=== PATIENT | male | born 1975 | race Caucasian/White ===

== ENCOUNTER 2018-10-10 09:16 | Emergency (ER) | payer BC ==
[2018-10-10 09:23] VITALS: RESP 20
[2018-10-10] MEDS ORDERED: PROPARACAINE 0.5% OPHTH DROPS 15 ML BTL BOTH EYES STA (09:52)
[2018-10-10] MEDS ORDERED: ERYTHROMYCIN 5 MG/GM OPHTH OINT 3.5 GM TUBE LEFT EYE STA (10:50)
[2018-10-10] MEDS ORDERED: CYCLOPENTOLATE 1% OPHTH SOLN 2 ML BTL LEFT EYE STA (12:09)
--- NOTE | 2018-10-10 12:37 | ED ---
General Adult HPI - General Chief complaint: Eye Problems Stated complaint: something in eye Time Seen by Provider: 10/10/18 09:40 Source: patient, RN notes reviewed Mode of arrival: ambulatory Limitations: no limitations - History of Present Illness Initial comments: 42-year-old male presents to the emergency department for a chief complaint of left eye irritation 2 days. Patient states he woke up with this irritation yesterday morning. He states his eye has been tearing since that time. He also admits to increased light sensitivity. Patient does not recall an episode in which she might have scratched his eye and thus he was sleeping. He denies a history of sleeping with his eyes open. Patient denies wearing contacts but does wear glasses. Patient was recently working on a car but denies any foreign objects hitting him in the eye during this. Patient has no other complaints at this time including shortness of breath, chest pain, abdominal pain, nausea or vomiting, headache, or visual changes. - Related Data Home Medications Medication Instructions Recorded Confirmed Propranolol [Inderal] 10 mg PO DAILY 10/10/18 10/10/18 Allergies Allergy/AdvReac Type Severity Reaction Status Date / Time No Known Allergies Allergy Verified 10/10/18 09:22 Review of Systems ROS Statement: Those systems with pertinent positive or pertinent negative responses have been documented in the HPI. ROS Other: All systems not noted in ROS Statement are negative. Past Medical History Past Medical History: Hypertension Additional Past Medical History / Comment(s): scioliosis History of Any Multi-Drug Resistant Organisms: None Reported Additional Past Surgical History / Comment(s): vasectomy Past Psychological History: No Psychological Hx Reported Smoking Status: Current every day smoker Past Alcohol Use History: Daily Past Drug Use History: Marijuana General Exam Limitations: no limitations General appearance: alert, in no apparent distress Head exam: Present: atraumatic, normocephalic, normal inspection Eye exam: Present: normal appearance, PERRL, EOMI, conjunctival injection ( Erythema noted of left conjunctiva). Absent: scleral icterus, periorbital swelling, periorbital tenderness Expanded Eyelids: Normal Inspection: Bilateral, Erythema: Left Pupils: Regular, Round: Bilateral, Miosissis: Left Sclera/Conjunctival: Normal Inspection: Right, Injection: Left (injection, no foreign body noted) Anterior chamber: Cell/Flare: Left (per Dr Simpson) Visual acuity (R) = 20/: 70 (uncorrected, glasses unavailable) Visual acuity (L) = 20/: 100 (uncorrected, glasses unavailable) With correction: No ENT exam: Present: normal exam, mucous membranes moist Neck exam: Present: normal inspection, full ROM. Absent: tenderness, meningismus, lymphadenopathy Respiratory exam: Present: normal lung sounds bilaterally. Absent: respiratory distress, wheezes, rales, rhonchi, stridor Cardiovascular Exam: Present: regular rate, normal rhythm, normal heart sounds. Absent: systolic murmur, diastolic murmur, rubs, gallop, clicks Neurological exam: Present: alert, oriented X3, CN II-XII intact Psychiatric exam: Present: normal affect, normal mood Course Vital Signs 10/10/18 10/10/18 09:19 13:12 Temperature 98 F 99.1 F Pulse Rate 88 89 Respiratory 20 20 Rate Blood Pressure 119/80 145/96 O2 Sat by Pulse 96 95 Oximetry Medical Decision Making - Medical Decision Making 42-year-old male presents to the emergency department for a chief complete of left eye irritation 2 days. Patient states he woke up with irritation, light sensitivity, and tearing since yesterday morning. He states his sensation has gotten worse. Patient states his vision is somewhat blurry but denies any other visual changes. Tetanus is up-to-date. On exam patient has minimal miosis noted of left pupil when compared to right pupil. Eye was stained with fluorescein and small 2.5 mm corneal abrasion noted at about 10 o'clock when visualized with the Wood's lamp. negative Wilfrido sign. Visual acuity uncorrected: OS 20/100, OD 20/70, bilat 20/40. Patient does wear glasses at home. Patient did not have a history of incident causing scratch to the eye doctor Tatiana was consulted. Dr. Simpson used slit lamp to visualize the eye and noted corneal abrasion. At this time Dr. Simpson recommends erythromycin 4 times a day and cyclopentolate TID x one day. Recommends follow-up tomorrow at his office at 10 AM. Patient agrees. Patient was given both of these medications here in the emergency department. He will return if he has any worsening symptoms. Disposition Clinical Impression: Corneal abrasion, left Disposition: HOME SELF-CARE Condition: Good Additional Instructions: Please apply erythromycin ointment 4 times per day for the next 7 days. Please apply cyclopentolate to the left eye 2 more times today and then stop usage. Please meet Dr. Simpson tomorrow at his office as discussed with him. Please return to the emergency department if you have any worsening symptoms. Is patient prescribed a controlled substance at d/c from ED?: No Referrals: Lela Robles MD [Primary Care Provider] - 1-2 days Lazarus Simpson MD [STAFF PHYSICIAN] - 1-2 days Time of Disposition: 13:13
--- NOTE | 2018-10-10 12:56 | P.CON ---
Consult Note - . Consult date: 10/10/18 Assessment/Plan:: 42 y/o male with 1 days history of discomfort and increasing sensitivity to light and tearing on awakening. This patient does not wear contacts but glasses , and has been working on a car recently, but denies any foreign debris in eye. Today the eye has become more uncomfortable and vision is poorer. There is no previous history of sleeping with eyes open. His last eye exam was several years ago. Va w/o correction: 20/40 OU, 20/70 OD & 20/100 OS Adnexa: unremarkable conjunctiva: OS with mild ciliary flush Cornea: OD unremarkable OS with mid peripheral abrasion in early healing stage ~ 2.5 mm andrew. nasal side AC: OD unremarkable, OS with 2+flare & trace cell Iris: unremarkable OD, mild miosis noted OS A: corneal abrasion with iritis OS, unknown etiology. P: start on antibiotic erythromycin 4 times daily; use " to 3/8" on finger to apply inside eyelid add cyclopentolate 1% 3 times daily use artificial tears to offset sensation, frequently Follow up at [facility] office in @ 10AM.
[2018-10-10 13:15] VITALS: BP 145/96; PULSE 89; TEMP 99.1
== END 2018-10-10 13:40 | disposition home or self-care (01) ==
LOC: EC 09:16
DX: S05.02XA Injury of conjunctiva and corneal abrasion without foreign body, left eye, initial encounter (principal); I10 Essential (primary) hypertension; F17.200 Nicotine dependence, unspecified, uncomplicated; Z79.899 Other long term (current) drug therapy; X58.XXXA Exposure to other specified factors, initial encounter
CPT/HCPCS: 99283

== ENCOUNTER → 2018-12-05 | Day surgery (SDC) | payer BC ==
[~2018-12-05] MED LIST: LACTATED RINGERS 1,000 ML IV ONE; LIDOCAINE 1% 20 ML VIAL (10MG/ML) FOR IV START INTRADERMA ONE; PROPOFOL 10 MG/ML 20 ML VIAL IV ONE
[2018-12-05 10:01] VITALS: TEMP 98.1
--- NOTE | 2018-12-05 11:20 | P.PCN ---
Date of Procedure: 12/05/18 Description of Procedure: BRIEF HISTORY: Patient is a 43-year-old pleasant male scheduled for an elective colonoscopy as a part of hematochezia. Per the patient has had intermittent episodes of bright red blood per rectum and was seen in the clinic for evaluation. He reports with wiping and stool. He denies any pain with hematochezia. He has no prior colonoscopy reported. PROCEDURE PERFORMED: Colonoscopy with polypectomy. PREOPERATIVE DIAGNOSIS: Hematochezia. ESTIMATED BLOOD LOSS: Minimal. IV sedation per Anesthesia. PROCEDURE: After informed consent was obtained, the patient, was brought into the endoscopy unit. IV sedation was administered by Anesthesia under continuous monitoring. Digital rectal examination was normal. Initially the Olympus CF- 190 flexible video colonoscope was then inserted in the rectum, gradually advanced into the cecum without any difficulty. Careful examination was performed as the scope was gradually being withdrawn. Ileocecal valve and the appendiceal orifice were visualized and appeared normal. Prep was excellent. Mucosa of the cecum, ascending colon, transverse colon, descending colon, sigmoid colon, and rectum appeared normal. A 6 mm sessile polyp in the transverse colon was noted and removed completely with cold snare polypectomy. A 3 mm sigmoid sessile polyp was noted and removed with cold snare polypectomy. Retroflexion was performed in the rectum and no lesions were seen, mild internal hemorrhoids were noted. The patient tolerated the procedure well. IMPRESSION: Normal-appearing colon from rectum to cecum. Cold snare polypectomy in the transverse colon. Cold forcep polypectomy in the sigmoid colon. Mild internal hemorrhoids. RECOMMENDATIONS: Findings of this examination were discussed with the patient. Okay for diet. Repeat colonoscopy in 5 years. We pathology from biopsies. Continue local hemorrhoidal care.
[2018-12-05 11:25] VITALS: RESP 16
[2018-12-05 11:35] VITALS: BP 116/85; PULSE 73
--- NOTE | 2018-12-09 10:57 | CDI ---
Outpatient Documentation Clarification Form Date: 12/09/18 CDS/Director Of Learning Name: Lashay Mcconnell Phone: If any questions, call Libra Echavarria Professor Of Floriculture at [phone] Patient Name: Eligio Brenner Admit Date: 12/05/18 Discharge Date: 12/05/18 ATTENTION: The [facility] Coding Staff appreciate your assistance in clarifying documentation. Please respond to the clarification below the line at the bottom and electronically sign. The [facility] Coding staff will review the response and follow-up if needed. Please note: Queries are made part of the Legal Health Record. If you have any questions, please contact the Professor Of Floriculture. Dear Dr. Young, What is the cause of the hematochezia? Our coding resources state that when hematochezia is documented along with internal and/or external hemorrhoids, the physician must be queried to determine whether the hematochezia is secondary to the hemorrhoids, or incidental. Another possible cause could potentially be the transverse colon tubular adenoma or the sigmoid polyp. Thank you for your kind consideration. Hematochezia secondary to hemorrhoids MTDD
== END ==
LOC: ORWHC2ENDO 09:45
PROVIDERS: ATTEND Internal Medicine
DX: K92.1 Melena (principal); D12.3 Benign neoplasm of transverse colon; K63.5 Polyp of colon; K64.8 Other hemorrhoids; I10 Essential (primary) hypertension; Z79.899 Other long term (current) drug therapy; F17.210 Nicotine dependence, cigarettes, uncomplicated; K64.4 Residual hemorrhoidal skin tags
CPT/HCPCS: 88305; 45380; 45385; J2704

== ENCOUNTER 2019-10-04 04:18 | Emergency (ER) | payer BC, OTHER ==
[2019-10-04 04:56] VITALS: RESP 18
[2019-10-04 05:04] LABS: Amphetamine Screen,Urine Not Detected (NotDetected); Barbiturate Screen,Urine Not Detected (NotDetected); Benzodiazepines Screen,Urine Not Detected (NotDetected); Cocaine Screen,Urine Not Detected (NotDetected); Methadone Screen, Urine Not Detected (NotDetected); Opiate Screen,Urine Not Detected (NotDetected); Oxycodone Screen, Urine Not Detected (NotDetected); Phencyclidine Screen,Urine Not Detected (NotDetected); Tricyclic Antidepressant,Urine Not Detected (NotDetected); Urn Cannabinoid Scrn Not Detected (NotDetected)
--- NOTE | 2019-10-04 05:06 | ED ---
General Adult HPI - General Source: patient, EMS, RN notes reviewed Mode of arrival: EMS Limitations: no limitations <Flex Walker - Last Filed: 10/04/19 05:03> <Flex Browne - Last Filed: 10/04/19 13:56> - General Stated complaint: Mental Health Time Seen by Provider: 10/04/19 04:19 - History of Present Illness Initial comments: 43-year-old male presents for evaluation of alcohol intoxication and suicidal ideation. Patient is being petitioned by his daughter. There is concern about suicidal intentions. Patient does admit to alcohol consumption today. He states he wants to be left alone, he had recent close friend who was killed in a motor vehicle accident. He denies suicidal attempt. Denies physical complaints. Patient brought in by EMS and local police. (Flex Walker) - Related Data Home Medications Medication Instructions Recorded Confirmed Propranolol [Inderal] 10 mg PO DAILY 10/10/18 12/05/18 traZODone HCL [Desyrel] 100 mg PO HS 12/05/18 12/05/18 Allergies Allergy/AdvReac Type Severity Reaction Status Date / Time No Known Allergies Allergy Verified 12/05/18 09:53 Review of Systems ROS Other: All systems not noted in ROS Statement are negative. <Flex Walker - Last Filed: 10/04/19 05:03> ROS Other: All systems not noted in ROS Statement are negative. <Flex Browne - Last Filed: 10/04/19 13:56> ROS Statement: Those systems with pertinent positive or pertinent negative responses have been documented in the HPI. Past Medical History Past Medical History: Hypertension Additional Past Medical History / Comment(s): scioliosis History of Any Multi-Drug Resistant Organisms: None Reported Additional Past Surgical History / Comment(s): vasectomy Past Psychological History: No Psychological Hx Reported Smoking Status: Current every day smoker Past Alcohol Use History: Daily Past Drug Use History: Marijuana <Flex Walker - Last Filed: 10/04/19 05:03> General Exam Limitations: no limitations General appearance: alert, appears intoxicated Head exam: Present: atraumatic, normocephalic Eye exam: Present: normal appearance, PERRL ENT exam: Present: normal exam Neck exam: Present: normal inspection. Absent: tenderness, meningismus Respiratory exam: Present: normal lung sounds bilaterally. Absent: respiratory distress, wheezes Cardiovascular Exam: Present: regular rate, normal rhythm GI/Abdominal exam: Present: soft. Absent: distended, tenderness, guarding Extremities exam: Present: normal inspection, normal capillary refill Neurological exam: Present: alert, oriented X3. Absent: motor sensory deficit Psychiatric exam: Present: depressed, agitated. Absent: suicidal ideation (Patient denies suicidal ideation at the time my evaluation) <Flex Walker - Last Filed: 10/04/19 05:03> Course <Flex Walker - Last Filed: 10/04/19 05:03> Vital Signs 10/04/19 04:41 Pulse Rate 104 H Respiratory 18 Rate Blood Pressure 137/109 O2 Sat by Pulse 97 Oximetry - Reevaluation(s) Reevaluation #1: 10/04/19 0700 Patient signed out at shift change to Dr. Browne awaiting sobriety and EPS evaluation. (Flex Walker) Medical Decision Making <Flex Browne - Last Filed: 10/04/19 13:56> - Medical Decision Making The patient rested comfortably throughout the morning and early afternoon months he was determined to be sober he was evaluated by psychiatric service he currently is not a risk to himself or anyone else he will be discharged with outpatient referrals. (Flex Browne) - Lab Data Lab Results 10/04/19 Range/Units 04:41 Urine Opiates Screen Not Detected (NotDetected) Ur Oxycodone Screen Not Detected (NotDetected) Urine Methadone Screen Not Detected (NotDetected) Ur Propoxyphene Screen Not Detected (NotDetected) Ur Barbiturates Screen Not Detected (NotDetected) U Tricyclic Antidepress Not Detected (NotDetected) Ur Phencyclidine Scrn Not Detected (NotDetected) Ur Amphetamines Screen Not Detected (NotDetected) U Methamphetamines Scrn Not Detected (NotDetected) U Benzodiazepines Scrn Not Detected (NotDetected) Urine Cocaine Screen Not Detected (NotDetected) U Marijuana (THC) Screen Not Detected (NotDetected) Disposition <Flex Walker - Last Filed: 10/04/19 05:03> Is patient prescribed a controlled substance at d/c from ED?: No <Flex Browne - Last Filed: 10/04/19 13:56> Clinical Impression: Adjustment reaction of adult life, Alcohol intoxication Disposition: HOME SELF-CARE Condition: Good Instructions (If sedation given, give patient instructions): Alcohol Use Disorder (ED), Alcohol Intoxication (ED), Mood Disorders (ED) Referrals: Tam Pretty MD [Primary Care Provider] - 1-2 days
[2019-10-04] MEDS ORDERED: LORazepam 2 MG/ML INJ IV STA (05:35)
[2019-10-04] MEDS ORDERED: NICOTINE 21MG/24HR PATCH TRANSDERM STA (06:32)
[2019-10-04 14:23] VITALS: BP 112/74; PULSE 78
== END 2019-10-04 15:21 | disposition home or self-care (01) ==
LOC: EC 04:18
DX: F10.129 Alcohol abuse with intoxication, unspecified (principal); F43.21 Adjustment disorder with depressed mood; R45.1 Restlessness and agitation; I10 Essential (primary) hypertension; F17.200 Nicotine dependence, unspecified, uncomplicated; Z79.899 Other long term (current) drug therapy
CPT/HCPCS: 82075; 80306; 99285; 96374; S4990; J2060

== ENCOUNTER → 2021-04-07 | Outpatient (CLI) | payer OTHER ==
[2021-04-07 19:06] LABS: Albumin 4.3 g/dL (3.80-4.90); Albumin/Globulin Ratio 1.65 (1.60-3.17); Anion Gap 10.4 mmol/L (4.00-12.00); Calcium 9.3 mg/dL (8.7-10.3); Carbon Dioxide 23.6 mmol/L (21.6-31.8); Globulin 2.6 g/dL (1.6-3.3); Non-African American GFR(CKD) 114.8 (60.0-200.0); Potassium 3.8 mmol/L (3.5-5.5); Total Bilirubin 0.5 mg/dL (0.2-1.2); Total Protein 6.9 g/dL (6.2-8.2)
[2021-04-07 19:14] LABS: T4, Free (Free Thyroxine) 1.2 ng/dL (0.80-1.80)
[2021-04-07 22:43] LABS: HCT 54.6 % (39.6-50.0); HGB 18.7 g/dL (13.0-17.0); MCH 36.3 pg (27.0-32.0); MCHC 34.2 g/dL (32.0-37.0); Mean Platelet Volume 12.1 fL (9.5-12.2); Platelet Count 182 X 10*3/uL (140-440); RBC 5.15 X 10*6/uL (4.40-5.60); RDW 13.2 % (11.5-14.5); WBC 5.03 X 10*3/uL (4.50-10.00)
[2021-04-07 23:24] LABS: Basophils # (A) 0.05 X 10*3/uL (0.00-0.10); Eosinophils # (A) 0.12 X 10*3/uL (0.04-0.35); Eosinophils % (A) 2.4 %; Lymphocytes % (A) 39.8 %; Macrocytosis (M) 2+; Monocytes # (A) 0.72 X 10*3/uL (0.20-1.00); Monocytes % (A) 14.3 %; Neutrophils # (A) 2.13 X 10*3/uL (1.80-7.70); Neutrophils % (A) 42.3 %
[2021-04-08 00:43] LABS: Erythrocyte Sedimentation Rate 2 mm/Hr (0-15)
== END | disposition home or self-care (01) ==
LOC: LABWHC1 10:52
PROVIDERS: ATTEND Family Medicine
DX: G25.0 Essential tremor (principal); R10.9 Unspecified abdominal pain
CPT/HCPCS: 36415; 80053; 82150; 83690; 84439; 84443; 85025; 85652

== ENCOUNTER → 2021-04-15 | Outpatient (CLI) | payer OTHER ==
--- NOTE | 2021-04-15 16:00 | CT ---
EXAMINATION TYPE: CT abdomen pelvis wo con DATE OF EXAM: 04/15/2021 COMPARISON: None HISTORY: Abdominal pain and nausea x3 months. CT DLP: 434.6 mGycm Examination of the solid and hollow viscera is limited given the lack of contrast. FINDINGS: LUNG BASES: No evidence for nodule. No evidence for infiltrate. LIVER/GB: The gallbladder is unremarkable. No space-occupying hepatic lesion. PANCREAS: No pancreatic mass identified. No inflammatory process seen. SPLEEN: No evidence for splenomegaly. No intrasplenic lesions seen. ADRENALS: No adrenal nodules identified. No evidence for thickening. KIDNEYS: No evidence for renal mass. No nephrolithiasis. No hydronephrosis. BOWEL: Appendix has a normal appearance. No evidence of bowel obstruction. No inflammatory process. Lymph nodes: No evidence for adenopathy greater than 1 cm. Abdominal aorta: Atheromatous changes seen. No evidence for aneurysm. Genital organs: No significant abnormality. Other: Fat-containing left inguinal hernia. IMPRESSION: NO SIGNIFICANT ABNORMALITY APPRECIATED.
== END | disposition home or self-care (01) ==
LOC: RADCTMAIN 15:37
PROVIDERS: ATTEND Family Medicine
DX: R10.9 Unspecified abdominal pain (principal)
CPT/HCPCS: 74176

== ENCOUNTER 2021-06-14 20:13 | Emergency (ER) | payer OTHER ==
[2021-06-14 20:19] VITALS: BP 128/96; PULSE 104; RESP 20; TEMP 98.2
--- NOTE | 2021-06-14 20:41 | ED ---
General Adult HPI - General Chief complaint: Psychiatric Symptoms Stated complaint: Petition Source: patient, RN notes reviewed, old records reviewed Mode of arrival: ambulatory Limitations: no limitations - History of Present Illness Initial comments: 45-year-old white male patient presents to the emergency room by [facility] ambulatory with steady gait for psychiatric evaluation. Patient states that he said the "wrong thing to the wrong person" he states that he told his friend that he wanted "to go to the [place]". 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 He is denying suicidal or homicial ideations, denying any depression. Patient is alert and oriented 4 he has a steady gait he does not appear to be intoxicated. He does not want to be the emergency room. He is not petitioned. There is no family member here to petition the patient, the [facility] didn't provide a signed petition. -: hour(s) (2) Treatments Prior to Arrival: none - Related Data Home Medications Medication Instructions Recorded Confirmed Propranolol [Inderal] 10 mg PO DAILY 10/10/18 12/05/18 traZODone HCL [Desyrel] 100 mg PO HS 12/05/18 12/05/18 Allergies Allergy/AdvReac Type Severity Reaction Status Date / Time No Known Allergies Allergy Verified 06/14/21 20:15 Review of Systems ROS Statement: Those systems with pertinent positive or pertinent negative responses have been documented in the HPI. ROS Other: All systems not noted in ROS Statement are negative. Past Medical History Past Medical History: Hypertension Additional Past Medical History / Comment(s): scioliosis History of Any Multi-Drug Resistant Organisms: None Reported Past Surgical History: No Surgical Hx Reported Additional Past Surgical History / Comment(s): vasectomy Past Psychological History: Depression Smoking Status: Current every day smoker Past Alcohol Use History: Daily Past Drug Use History: Marijuana General Exam Limitations: no limitations General appearance: alert, in no apparent distress Head exam: Present: atraumatic, normocephalic, normal inspection Eye exam: Present: normal appearance, PERRL, EOMI. Absent: scleral icterus, conjunctival injection, periorbital swelling Pupils: Present: normal accommodation ENT exam: Present: normal exam, normal oropharynx, mucous membranes moist Neck exam: Present: normal inspection, full ROM. Absent: tenderness, meningismus, lymphadenopathy, thyromegaly Respiratory exam: Present: normal lung sounds bilaterally. Absent: respiratory distress, wheezes, rales, rhonchi, stridor, chest wall tenderness, accessory muscle use, decreased breath sounds, prolonged expiratory Cardiovascular Exam: Present: regular rate, normal rhythm, normal heart sounds. Absent: systolic murmur, diastolic murmur, rubs, gallop, clicks GI/Abdominal exam: Present: soft, normal bowel sounds. Absent: distended, tenderness, guarding, rebound, rigid Extremities exam: Present: normal inspection, full ROM, normal capillary refill, other (Second third digits right hand stained with nicotine). Absent: tender ness, pedal edema, joint swelling, calf tenderness Back exam: Present: full ROM, other (Scoliosis mild). Absent: tenderness, CVA tenderness (R), CVA tenderness (L), muscle spasm, paraspinal tenderness Neurological exam: Present: alert, oriented X3, CN II-XII intact Psychiatric exam: Present: normal affect, normal mood. Absent: agitated, anxious, flat affect, manic, homicidal ideation, suicidal ideation Skin exam: Present: warm, dry, intact, normal color. Absent: rash, cyanosis, diaphoretic, erythema, petechiae, pallor, mottled Course Vital Signs 06/14/21 20:16 Temperature 98.2 F Pulse Rate 104 H Respiratory 20 Rate Blood Pressure 128/96 O2 Sat by Pulse 95 Oximetry Medical Decision Making - Medical Decision Making Patient denies any homicidal or suicidal ideations. He is alert and oriented 4 he has a steady gait he does not appear to be intoxicated. Vital signs are stable. He has no medical complaints. He is brought by the police without a petition for psych evaluation. There is no family member here to petition the patient. He wants to go home. Case discussed with Dr. Godoy and patient discharged home. Disposition Clinical Impression: Well adult exam Disposition: HOME SELF-CARE Condition: Good Instructions (If sedation given, give patient instructions): Normal Exam (ED) Additional Instructions: Return to the emergency room with any physical complaints or worsening symptoms. Is patient prescribed a controlled substance at d/c from ED?: No Referrals: Tam Pretty MD [Primary Care Provider] - 1-2 days Time of Disposition: 20:39
== END 2021-06-14 20:40 | disposition home or self-care (01) ==
LOC: EC 20:13
DX: R26.9 Unspecified abnormalities of gait and mobility (principal); I10 Essential (primary) hypertension; F17.200 Nicotine dependence, unspecified, uncomplicated
CPT/HCPCS: 99284

== ENCOUNTER 2021-08-08 16:04 | Inpatient (IN) | payer MEDICAID, OTHER ==
--- NOTE | 2021-08-08 17:02 | ED ---
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 please excuse any grammatical, word or spelling errors. Chief Complaint: 45-year-old male brought in by law enforcement for picker and sorter load and unload order History of Present Illness: Is a 45-year-old male is brought in by police for psychiatric evaluation. Patient allegedly has been harmful towards others making homicidal comments. Patient denies such claims. States that he just wants to be left alone. According to picker and sorter load and unload order documentation patient is making homicidal threats to family. He is also been having destructive behavior showing signs of mariela. Patient allegedly has a history of drug abuse. Patient states that he just wants to have some [place]. The ROS documented in this emergency department record has been reviewed and confirmed by me. Those systems with pertinent positive or negative responses have been documented in the HPI. All other systems are other negative and/or noncontributory. PHYSICAL EXAM: General Impression: Alert and oriented x3, not in acute distress HEENT: Normocephalic atraumatic, extra-ocular movements intact, pupils equal and reactive to light bilaterally, mucous membranes moist. Cardiovascular: Heart regular rate and rhythm Chest: Able to complete full sentences, no retractions, no tachypnea Abdomen: abdomen soft, non-tender, non-distended, no organomegaly Musculoskeletal: Pulses present and equal in all extremities, no peripheral edema Motor: no focal deficits noted Neurological: CN II-XII grossly intact, no focal motor or sensory deficits noted Skin: Intact with no visualized rashes Psych: Agitated ED course: 45-year-old male brought into the emergency Department for petition, Court documentation picker and sorter load and unload order. Brought in by police. Patient is mildly agitated however not showing any signs of overt psychosis. Vital signs upon arrival are within acceptable limits. Physical examination is benign. Patient has no medical complaints. Patient medically cleared for EPS evaluation. Patient evaluated by EPS and we'll have patient admitted to inpatient psychiatry . Psychiatric inpatient Certification was completed. - Related Data Home Medications Medication Instructions Recorded Confirmed Propranolol [Inderal] 10 mg PO DAILY 10/10/18 08/08/21 traZODone HCL [Desyrel] 100 mg PO HS 12/05/18 08/08/21 amLODIPine [Norvasc] 10 mg PO DAILY 08/08/21 08/08/21 Allergies Allergy/AdvReac Type Severity Reaction Status Date / Time No Known Allergies Allergy Verified 08/08/21 18:43 Review of Systems ROS Statement: Those systems with pertinent positive or pertinent negative responses have been documented in the HPI. ROS Other: All systems not noted in ROS Statement are negative. Past Medical History Past Medical History: Hypertension Additional Past Medical History / Comment(s): scioliosis History of Any Multi-Drug Resistant Organisms: None Reported Past Surgical History: No Surgical Hx Reported Additional Past Surgical History / Comment(s): vasectomy Past Psychological History: Depression Smoking Status: Current every day smoker Past Alcohol Use History: Occasional Past Drug Use History: None Reported General Exam Limitations: no limitations Course Vital Signs 08/08/21 08/08/21 08/08/21 16:28 16:34 17:34 Temperature 98.6 F Pulse Rate 89 Respiratory 18 18 18 Rate Blood Pressure 143/100 O2 Sat by Pulse 98 Oximetry 08/08/21 18:34 Temperature Pulse Rate Respiratory 18 Rate Blood Pressure O2 Sat by Pulse Oximetry Disposition Clinical Impression: Psychosis Disposition: ADMITTED IP TO THIS HOSP Condition: Fair Referrals: Tam Pretty MD [Primary Care Provider] - 1-2 days
[2021-08-08] MEDS ORDERED: NICOTINE 21MG/24HR PATCH TRANSDERM STA (20:14)
[2021-08-09] MEDS ORDERED: MAG HYDROX/AL HYDROX/SIMETH 30 ML CUP PO PRN (00:01)
[2021-08-09] MEDS ORDERED: MAGNESIUM HYDROXIDE 2,400 MG/10 ML CUP PO PRN (00:01)
[2021-08-09] MEDS ORDERED: ACETAMINOPHEN TAB 325 MG TAB PO PRN (00:01)
[2021-08-09] MEDS ORDERED: LORazepam 1 MG TAB PO PRN (00:01)
[2021-08-09] MEDS ORDERED: haloperidoL 5 MG TAB PO PRN (00:04)
[2021-08-09] MEDS ORDERED: LORazepam 2 MG/ML INJ IM PRN (00:04)
[2021-08-09] MEDS ORDERED: HALOPERIDOL LACTATE 5 MG/ML 1 ML VIAL IM PRN (00:04)
--- NOTE | 2021-08-09 01:45 | P.MDCNMH ---
History of Present Illness H&P Date: 08/09/21 Chief Complaint: Medical evaluation 45-year-old male with hypertension Comes in by police for pickup order has family was claiming that he is making homicidal threats and having some destructive behavior, patient denies all these claims and saying that he was actually planning to leave to [place]. He currently denies any medical concerns denies any fevers chills coughing chest pain trouble breathing nausea vomiting abdominal pain changes in bowel or urinary habits He admits to tobacco smoking and occasional marijuana and social alcohol Review of Systems Pertinent positives as noted in HPI. All other systems were reviewed and are negative Past Medical History Past Medical History: Hypertension Additional Past Medical History / Comment(s): scioliosis History of Any Multi-Drug Resistant Organisms: None Reported Past Surgical History: No Surgical Hx Reported Additional Past Surgical History / Comment(s): vasectomy Past Psychological History: Depression Smoking Status: Current every day smoker Past Alcohol Use History: Occasional Past Drug Use History: None Reported - Past Family History Family Family Medical History: No Reported History Medications and Allergies Home Medications Medication Instructions Recorded Confirmed Type Propranolol [Inderal] 10 mg PO DAILY 10/10/18 08/08/21 History traZODone HCL [Desyrel] 100 mg PO HS 12/05/18 08/08/21 History amLODIPine [Norvasc] 10 mg PO DAILY 08/08/21 08/08/21 History Allergies Allergy/AdvReac Type Severity Reaction Status Date / Time No Known Allergies Allergy Verified 08/08/21 18:43 Physical Exam Vitals: Vital Signs Temp Pulse Resp BP Pulse Ox 08/09/21 00:00 98.0 F 64 18 118/79 99 08/08/21 18:34 18 08/08/21 17:34 18 08/08/21 16:34 18 08/08/21 16:28 98.6 F 89 18 143/100 98 Intake and Output 08/08/21 08/08/21 08/09/21 14:59 22:59 06:59 Other: Weight 86.183 kg Constitutional: No acute distress, conversant, pleasant Eyes: Anicteric sclerae, moist conjunctiva, Pupils equal round reactive to light ENMT: NC/AT Oropharynx clear, no erythema, or exudates Neck: Supple, FROM, no masses, or JVD No carotid bruits No thyromegaly Lungs: Clear to auscultation Clear to percussion Normal respiratory effort, no accessory muscle use Cardiovascular: Heart regular in rate and rhythm, No murmurs, gallops, or rubs No peripheral edema Abdominal: Soft Nontender, no guarding, rebound or rigidity Abdomen moving with respiration Normoactive bowel sounds No hepatomegaly, No splenomegaly No palpable mass No abdominal wall hernia noted Skin: Normal temperature, tone, texture, turgor No induration No subcutaneous nodules No rash, lesions No ulcers Extremities: No digital cyanosis No clubbing Pedal pulses intact and symmetrical Radial pulses intact and symmetrical No calf tenderness Psychiatric: Alert and oriented to person, place and time Neuro Muscles Strength 5/5 in all 4 extremities Sensation to light touch grossly present throughout Cranial nerves II-XII grossly intact No focal sensory deficits Lymphatics: no palpable cervical or supraclavicular , or inguinal lymph nodes Cranial Nerve Examination - Cranial Nerves Cranial Nerve II- Optic: Intact Cranial Nerve III- Oculomotor: Intact Cranial Nerve IV- Trochlear: Intact Cranial Nerve V- Trigeminal: Intact Cranial Nerve - Abducens: Intact Cranial Nerve VII- Facial: Intact Cranial Nerve VIII- Auditory: Intact Cranial Nerve IX- Glossopharyngeal: Intact Cranial Nerve X- Vagus: Intact Cranial Nerve XI- Accessory: Intact Cranial Nerve XII- Hypoglossal: Intact Assessment and Plan Assessment: Acute psychosis Management per psych Hypertension controlled Resume [facility] Follow-up labs Check urine drug screen Thank you for allowing us to participate in the care of this patient. We will follow peripherally. Do not hesitate to contact us with questions. Someone can be reached from the [facility] hospitalist group at all hours of the day at [phone].
[2021-08-09] MEDS: amLODIPine 10 MG TAB PO SCH (09:07)
[2021-08-09] MEDS: NICOTINE 14MG/24HR PATCH TRANSDERM SCH (09:07)
[2021-08-09] MEDS: PROPRANOLOL 10 MG TAB PO SCH (09:07)
[2021-08-09] MEDS ORDERED: traZODone HCL 50 MG TAB PO PRN (13:04)
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
[2021-08-09 16:54] LABS: Appearance,Urine Clear (Clear); Bilirubin,Urine Negative (Negative); Blood,Urine Negative (Negative); Color,Urine Yellow; Glucose,Urine (UA) Negative (Negative); Ketones,Urine Negative (Negative); Leukocyte Esterase,Urine Negative (Negative); Nitrite,Urine Negative (Negative); Protein,Urine Negative (Negative); Specific Gravity,Urine 1.017 (1.001-1.035); Urobilinogen,Urine <2.0 mg/dL (<2.0)
[2021-08-09] MEDS ORDERED: traZODone HCL 100 MG TAB PO SCH (21:00)
[2021-08-09] MEDS: OLANZapine 2.5 MG TAB PO SCH (21:29)
[2021-08-10 07:12] VITALS: RESP 16
[2021-08-10] MEDS: NICOTINE 14MG/24HR PATCH TRANSDERM SCH (08:22)
[2021-08-10] MEDS: PROPRANOLOL 10 MG TAB PO SCH (08:22)
[2021-08-10] MEDS: amLODIPine 10 MG TAB PO SCH (08:22)
--- NOTE | 2021-08-10 11:57 | P.PN ---
Progress Note - Text Progress Note Date: 08/10/21 Interval History: Patient was seen lying in his bed today and was directable and agreeable to sp amador with automobile and property underwriter in the office. Patient appears to be less irritable during conversation. He was more organized in his thought process. He continues to ramble at times and speak about his mother negatively. He claims that she is not able to evict him until several months after having a court date and claims that he is still debating whether to go to [place] or not. He states that his mood and anxiety are "fine" and have been improving. He states that he had some "weird dreams" last night however states that he slept fairly throughout the night. He was asking about potential discharge. He claims that he has been going to some groups. At this time patient denies any suicidal or homical ideations, intent or plan. Patient denies any auditory, visual hallucinations and denies any paranoia or delusions. Patient denies any side effects from the medications and has been compliant with meds. Mental Status Exam: General Appearance: Patient appears to be tall, stated age is alert, directable, and attempts to cooperate. Patient appears to have fair hygiene and grooming. Multiple tattoos Behavior: Patient is seated without any agitated behavior. less irritable today Speech: Patient's speech is fluent and nonpressured. Mood/Affect: Patient reports their mood is "fine", affect is congruent and constricted. Suicidality/Homicidality: Patient denies having any homicidal ideation intent or plan. Denies any suicidal ideations intent or plan Perceptions: Patient denies any visual hallucinations and denies any auditory hallucinations Though content/process: There is no evidence of any delusional thought content. more goal oriented today. rambles. Memory and concentration: AOX3, grossly intact for the purposes of this session. Judgment and insight: improving mildly Assessment Mood disorder unspecified, rule out bipolar disorder, rule out adjustment disorder. Cannabis use disorder Nicotine dependence Plan: -Patient continues to meet criteria for inpatient psychiatric admission for symptom stabilization and safety. Patient has signed adult voluntary form and medication consent and was placed in patient's chart. -Medications: Continue Zyprexa 2.5 mg daily at bedtime for mood stabilization/insomnia. Trazodone 50 mg daily at bedtime when necessary for insomnia. Continue with propranolol for essential tremors. -When necessary Ativan and Haldol for agitation/aggression. -NRT - nicotine patch -SW on board for discharge planning. Encouraged the patient to participate in milieu. will attempt to find out if patients [facility] treartment order is still active. Patient will likely be discharged back home tomorrow.
[2021-08-10 15:03] LABS: Urine Alcohol Negative (Negative); Urine Barbiturate Negative (Negative); Urine Cocaine Negative (Negative); Urine Methadone Negative (Negative); Urine Opiates Negative (Negative); Urine Phencyclidine Negative (Negative)
[2021-08-10] MEDS: OLANZapine 2.5 MG TAB PO SCH (20:49)
[2021-08-11 07:27] VITALS: TEMP 97.7
[2021-08-11] MEDS: NICOTINE 14MG/24HR PATCH TRANSDERM SCH (08:30)
[2021-08-11] MEDS: PROPRANOLOL 10 MG TAB PO SCH (08:30)
[2021-08-11] MEDS: amLODIPine 10 MG TAB PO SCH (08:30)
[2021-08-11 08:31] VITALS: BP 128/82; PULSE 71
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
== END 2021-08-11 14:37 | disposition home or self-care (01) | DRG 885 ==
LOC: EC 16:04 → 3MHU 23:47
PROVIDERS: ADMIT Psychiatry & Neurology Psychiatry; ATTEND Psychiatry & Neurology Psychiatry
DX: F39 Unspecified mood [affective] disorder (principal); R45.851 Suicidal ideations; I10 Essential (primary) hypertension; F17.210 Nicotine dependence, cigarettes, uncomplicated; F12.10 Cannabis abuse, uncomplicated; F41.9 Anxiety disorder, unspecified; G47.00 Insomnia, unspecified; M41.9 Scoliosis, unspecified; R45.850 Homicidal ideations; Z56.0 Unemployment, unspecified; Z79.899 Other long term (current) drug therapy
CPT/HCPCS: 80306; 81003; 82075; 87635; 99285

== ENCOUNTER 2022-06-11 07:52 | Inpatient (IN) | payer MEDICAID, OTHER ==
[2022-06-11 07:55] VITALS: RESP 16
--- NOTE | 2022-06-11 08:31 | ED ---
Psych HPI - General Chief Complaint: Psychiatric Symptoms Stated Complaint: petition Time Seen by Provider: 06/11/22 07:59 Source: patient, police, RN notes reviewed Mode of arrival: ambulatory - History of Present Illness Initial Comments: 46-year-old male with a history of psychosis history of alcohol abuse who is brought in by police today the patient stated that he wanted to kill himself he attacks and his mother stated he was using go out into the local river and try to drown and he also asked his mother apparently did break consultation himself. He does admit to drinking alcohol perhaps up to one half pints of vodka today. No other current complaints other than chronic low back pain. He states he does have tremors that he takes propranolol for. MD Complaint: suicidal ideation, feels depressed, other - Related Data Home Medications Medication Instructions Recorded Confirmed Propranolol [Inderal] 10 mg PO DAILY 10/10/18 08/08/21 amLODIPine [Norvasc] 10 mg PO DAILY 08/08/21 08/08/21 Previous Rx's Medication Instructions Recorded Acetaminophen Tab [Tylenol] 650 mg PO Q4HR PRN tab 08/11/21 Nicotine 14Mg/24Hr Patch [Habitrol] 1 patch TRANSDERM DAILY 14 Days 08/11/21 patch OLANZapine [ZyPREXA] 2.5 mg PO HS 30 Days tab 08/11/21 Allergies Allergy/AdvReac Type Severity Reaction Status Date / Time No Known Allergies Allergy Verified 06/11/22 07:55 Review of Systems ROS Statement: Those systems with pertinent positive or pertinent negative responses have been documented in the HPI. ROS Other: All systems not noted in ROS Statement are negative. Past Medical History Past Medical History: Hypertension Additional Past Medical History / Comment(s): scioliosis History of Any Multi-Drug Resistant Organisms: None Reported Past Surgical History: No Surgical Hx Reported Additional Past Surgical History / Comment(s): vasectomy Past Psychological History: Depression Smoking Status: Current every day smoker Past Alcohol Use History: Occasional Past Drug Use History: None Reported - Past Family History Family Family Medical History: No Reported History General Exam - General Exam Comments Initial Comments: This is a well-developed well-nourished awake alert oriented 4 male he does have the smell of alcohol conjoiners on his breath Limitations: no limitations General appearance: alert, in no apparent distress Head exam: Present: atraumatic, normocephalic, normal inspection Eye exam: Present: normal appearance, PERRL, EOMI. Absent: scleral icterus, conjunctival injection, periorbital swelling ENT exam: Present: normal exam, mucous membranes moist Neck exam: Present: normal inspection. Absent: tenderness, meningismus, ly mphadenopathy Respiratory exam: Present: normal lung sounds bilaterally. Absent: respiratory distress, wheezes, rales, rhonchi, stridor Cardiovascular Exam: Present: regular rate, normal rhythm, normal heart sounds. Absent: systolic murmur, diastolic murmur, rubs, gallop, clicks GI/Abdominal exam: Present: soft, normal bowel sounds. Absent: distended, tenderness, guarding, rebound, rigid Extremities exam: Present: normal inspection, full ROM, normal capillary refill. Absent: tenderness, pedal edema, joint swelling, calf tenderness Back exam: Present: normal inspection Neurological exam: Present: alert, oriented X3, CN II-XII intact Psychiatric exam: Present: depressed, flat affect, suicidal ideation Skin exam: Present: warm, dry, intact, normal color. Absent: rash Course Vital Signs 06/11/22 07:53 Temperature 98 F Pulse Rate 90 Respiratory 16 Rate Blood Pressure 136/103 O2 Sat by Pulse 96 Oximetry Medical Decision Making - Medical Decision Making The patient was evaluated by the EPS service after he was considered to be sober. Patient is still depressed and suicidal he will be admitted he is a voluntary admission. Disposition Clinical Impression: Depression, Suicidal ideation, Alcohol intoxication Disposition: TRANSFER TO PSYCH HOSP/UNIT Condition: Stable Referrals: Noam Perez MD [Primary Care Provider] - 1-2 days Decision Date: 06/11/22 Decision Time: 15:19
[2022-06-11] MEDS ORDERED: HALOPERIDOL LACTATE 5 MG/ML 1 ML VIAL IM PRN (17:01)
[2022-06-11] MEDS ORDERED: MAG HYDROX/AL HYDROX/SIMETH 30 ML CUP PO PRN (17:01)
[2022-06-11] MEDS ORDERED: ACETAMINOPHEN TAB 325 MG TAB PO PRN (17:01)
[2022-06-11] MEDS ORDERED: LORazepam 1 MG TAB PO PRN ×2 (17:01)
[2022-06-11] MEDS ORDERED: MAGNESIUM HYDROXIDE 2,400 MG/10 ML CUP PO PRN (17:01)
[2022-06-11] MEDS ORDERED: traZODone HCL 50 MG TAB PO PRN (17:07)
[2022-06-11] MEDS ORDERED: LORazepam 1 MG/0.5 ML VIAL IM PRN (17:07)
[2022-06-11] MEDS ORDERED: haloperidoL 5 MG TAB PO PRN (17:08)
[2022-06-11] MEDS: diazePAM 5 MG TAB PO SCH (21:34)
[2022-06-11] MEDS ORDERED: chlordiazePOXIDE 25 MG CAP PO SCH (22:00)
[2022-06-12 08:24] LABS: ALT 149 U/L (4-49); AST 170 U/L (17-59); African American GFR (CKD) >90 (>60 ml/min/1.73 sqM); Albumin 4.3 g/dL (3.5-5.0); Alkaline Phosphatase 93 U/L (38-126); Anion Gap 8 mmol/L; Blood Urea Nitrogen 10 mg/dL (9-20); Calcium 9.6 mg/dL (8.4-10.2); Carbon Dioxide 29 mmol/L (22-30); Chloride 105 mmol/L (98-107); Glucose 98 mg/dL (74-99); Non-African American GFR(CKD) >90 (>60 ml/min/1.73 sqM); Potassium 4.2 mmol/L (3.5-5.1); Sodium 142 mmol/L (137-145); Total Bilirubin 0.9 mg/dL (0.2-1.3); Total Protein 7.2 g/dL (6.3-8.2)
[2022-06-12 08:30] LABS: Basophils # (A) 0.1 k/uL (0-0.2); Basophils % (A) 1 %; Eosinophils # (A) 0.1 k/uL (0-0.7); Eosinophils % (A) 2 %; HCT 53.3 % (39.0-53.0); HGB 18.3 gm/dL (13.0-17.5); Lymphocytes # (A) 1.7 k/uL (1.0-4.8); Lymphocytes % (A) 31 %; MCH 38.3 pg (25.0-35.0); MCHC 34.4 g/dL (31.0-37.0); MCV 111.6 fL (80.0-100.0); Macrocytosis Marked; Mean Platelet Volume 9.8; Monocytes # (A) 0.4 k/uL (0-1.0); Monocytes % (A) 7 %; Neutrophils # (A) 3.1 k/uL (1.3-7.7); Neutrophils % (A) 57 %; Platelet Count 206 k/uL (150-450); RBC 4.77 m/uL (4.30-5.90); RDW 13.2 % (11.5-15.5); WBC 5.3 k/uL (3.8-10.6)
[2022-06-12] MEDS: NICOTINE 14MG/24HR PATCH TRANSDERM SCH (08:40)
[2022-06-12] MEDS: amLODIPine 10 MG TAB PO SCH (08:41)
[2022-06-12] MEDS: MULTIVITAMINS, THERA 1 EACH TAB PO SCH (08:41)
[2022-06-12] MEDS: diazePAM 5 MG TAB PO SCH ×3 (08:41→21:23)
[2022-06-12] MEDS: FOLIC ACID 1 MG TAB PO SCH (08:41)
[2022-06-12] MEDS: THIAMINE 100 MG TAB PO SCH (08:41)
[2022-06-12] MEDS: CYCLOBENZAPRINE 10 MG TAB PO PRN ×2 (08:45→18:54)
[2022-06-12] MEDS ORDERED: PROPRANOLOL LA 80 MG CAP.SA.24H PO SCH (09:00)
[2022-06-12 10:45] LABS: Chol/HDL Ratio 3.17 Ratio; LDL Cholesterol,Calculated 96.6 mg/dL (0.0-131.0)
--- NOTE | 2022-06-12 13:14 | P.CONS ---
History of Present Illness - Reason for Consult Medical clearance - History of Present Illness Patient [id number] male admitted for acute psychosis. Patient does smoke half a pack of cigarette per day is comparing of some shortness of breath and cough without any sputum production patient does have significant wheezing on exam. I do not have any chest x-ray available at this time. Patient's hemogl obin is 18.3 patient does have transaminitis does have history of regular alcohol use uses about 6 pack of beers on average a day patient doesn't have any withdrawals at this time patient will have any withdrawals in the past his withdrawals is only lack of sleep. REVIEW OF SYSTEMS: CONSTITUTIONAL: No fever, no malaise, no fatigue. HEENT: No recent visual problems or hearing problems. Denied any sore throat. CARDIOVASCULAR: No chest pain, orthopnea, PND, no palpitations, no syncope. PULMONARY:no hemoptysis. GASTROINTESTINAL: No diarrhea, no nausea, no vomiting, no abdominal pain. NEUROLOGICAL: No headaches, no weakness, no numbness. HEMATOLOGICAL: Denies any bleeding or petechiae. GENITOURINARY: Denies any burning micturition, frequency, or urgency. MUSCULOSKELETAL/RHEUMATOLOGICAL: Denies any joint pain, swelling, or any muscle pain. ENDOCRINE: Denies any polyuria or polydipsia. The rest of the 14-point review of systems is negative. PHYSICAL EXAMINATION: GENERAL: The patient is alert and oriented x3, not in any acute distress. Well developed, well nourished. HEENT: Pupils are round and equally reacting to light. EOMI. No scleral icterus. No conjunctival pallor. Normocephalic, atraumatic. No pharyngeal erythema. No thyromegaly. CARDIOVASCULAR: S1 and S2 present. No murmurs, rubs, or gallops. PULMONARY: Patient does have expiratory wheezing ABDOMEN: Soft, nontender, nondistended, normoactive bowel sounds. No palpable organomegaly. MUSCULOSKELETAL: No joint swelling or deformity. EXTREMITIES: No cyanosis, clubbing, or pedal edema. NEUROLOGICAL: Gross neurological examination did not reveal any focal deficits. SKIN: No rashes. Assessment and plan COPD with mild acute exacerbation patient will be started on inhaled steroids inhalational treatments will monitor the patient. Nicotine cessation counseling was provided patient does have a nicotine patch at this time because of significant wheezing, does continue her propranolol. -Transaminitis: alcohol use patient has acute alcoholic hepatitis never had any withdrawals in the past -Polycythemia secondary to smoking and possibility of mild dehydration no intervention at this time DVT prophylaxis: Past Medical History Past Medical History: Hypertension Additional Past Medical History / Comment(s): scioliosis History of Any Multi-Drug Resistant Organisms: None Reported Past Surgical History: No Surgical Hx Reported Additional Past Surgical History / Comment(s): vasectomy Smoking Status: Current every day smoker - Past Family History Family Family Medical History: No Reported History Medications and Allergies Home Medications Medication Instructions Recorded Confirmed Type amLODIPine [Norvasc] 10 mg PO DAILY 08/08/21 06/11/22 History Cyclobenzaprine [Flexeril] 10 mg PO TID PRN 06/11/22 06/11/22 History LORazepam [Ativan] 0.5 mg PO BID PRN 06/11/22 06/11/22 History Propranolol HCl [Propranolol HCl 80 mg PO DAILY 06/11/22 06/11/22 History ER] traZODone HCL 150 mg PO DAILY PRN 06/11/22 06/11/22 History Allergies Allergy/AdvReac Type Severity Reaction Status Date / Time Mushroom AdvReac Nausea & Verified 06/11/22 17:23 Vomiting & Diarrhea & Dizziness Physical Exam Vitals: Vital Signs Temp Pulse Pulse Resp BP 06/11/22 18:41 98.6 F 76 76 16 118/74 06/11/22 17:58 98.6 F 76 16 118/74 Intake and Output 06/11/22 06/12/22 06/12/22 22:59 06:59 14:59 Other: Weight 86.183 kg Results CBC & Chem 7: 06/12/22 07:31 06/12/22 07:31 Labs: Abnormal Lab Results - Last 24 Hours (Table) 06/12/22 06/12/22 Range/Units 07:31 07:31 Hgb 18.3 H (13.0-17.5) gm/dL Hct 53.3 H (39.0-53.0) % MCV 111.6 H (80.0-100.0) fL MCH 38.3 H (25.0-35.0) pg Macrocytosis Marked A Creatinine 0.64 L (0.66-1.25) mg/dL AST 170 H (17-59) U/L ALT 149 H (4-49) U/L
[2022-06-12] MEDS ORDERED: traZODone HCL 100 MG TAB PO PRN (13:33)
--- NOTE | 2022-06-12 13:43 | P.HP ---
Psychiatric H&P - . H&P Date: 06/12/22 History & Physical: Allergies Allergy/AdvReac Type Severity Reaction Status Date / Time Mushroom AdvReac Nausea & Verified 06/11/22 17:23 Vomiting & Diarrhea & Dizziness Vital Signs Temp 98.6 F 06/11/22 18:41 Pulse 76 06/11/22 18:41 Resp 16 06/11/22 18:41 BP 118/74 06/11/22 18:41 Pulse Ox 96 06/11/22 07:53 FiO2 Intake & Output 06/11/22 06/12/22 06/12/22 18:59 06:59 18:59 Weight 86.183 kg Laboratory Last Values WBC 5.3 k/uL (3.8-10.6) 06/12/22 07:31 RBC 4.77 m/uL (4.30-5.90) 06/12/22 07:31 Hgb 18.3 gm/dL (13.0-17.5) H 06/12/22 07:31 Hct 53.3 % (39.0-53.0) H 06/12/22 07:31 MCV 111.6 fL (80.0-100.0) H 06/12/22 07:31 MCH 38.3 pg (25.0-35.0) H 06/12/22 07:31 MCHC 34.4 g/dL (31.0-37.0) 06/12/22 07:31 RDW 13.2 % (11.5-15.5) 06/12/22 07:31 Plt Count 206 k/uL (150-450) 06/12/22 07:31 MPV 9.8 06/12/22 07:31 Neutrophils % 57 % 06/12/22 07:31 Lymphocytes % 31 % 06/12/22 07:31 Monocytes % 7 % 06/12/22 07:31 Eosinophils % 2 % 06/12/22 07:31 Basophils % 1 % 06/12/22 07:31 Neutrophils # 3.1 k/uL (1.3-7.7) 06/12/22 07:31 Lymphocytes # 1.7 k/uL (1.0-4.8) 06/12/22 07:31 Monocytes # 0.4 k/uL (0-1.0) 06/12/22 07:31 Eosinophils # 0.1 k/uL (0-0.7) 06/12/22 07: Basophils # 0.1 k/uL (0-0.2) 06/12/22 07:31 Manual Slide Review Performed 06/12/22 07:31 Macrocytosis Marked A 06/12/22 07:31 Sodium 142 mmol/L (137-145) 06/12/22 07:31 Potassium 4.2 mmol/L (3.5-5.1) 06/12/22 07: Chloride 105 mmol/L (98-107) 06/12/22 07:31 Carbon Dioxide 29 mmol/L (22-30) 06/12/22 07:31 Anion Gap 8 mmol/L 06/12/22 07:31 BUN 10 mg/dL (9-20) 06/12/22 07:31 Creatinine 0.64 mg/dL (0.66-1.25) L 06/12/22 07:31 Est GFR (CKD-EPI)AfAm >90 (>60 ml/min/1.73 sqM) 06/12/22 07:31 Est GFR (CKD-EPI)NonAf >90 (>60 ml/min/1.73 sqM) 06/12/22 07:31 Glucose 98 mg/dL (74-99) 06/12/22 07:[address] Glu mg/dL 104 06/12/22 07:31 Hemoglobin A1c 5.2 % (0.0-6.0) 06/12/22 07: Calcium 9.6 mg/dL (8.4-10.2) 06/12/22 07:31 Total Bilirubin 0.9 mg/dL (0.2-1.3) 06/12/22 07:31 AST 170 U/L (17-59) H 06/12/22 07:31 ALT 149 U/L (4-49) H 06/12/22 07:31 Alkaline Phosphatase 93 U/L (38-126) 06/12/22 07:31 Total Protein 7.2 g/dL (6.3-8.2) 06/12/22 07:31 Albumin 4.3 g/dL (3.5-5.0) 06/12/22 07:31 Triglycerides 78.50 mg/dL (0.00-149.00) 06/12/22 07:31 Cholesterol 164.00 mg/dL (0.00-200.00) 06/12/22 07:31 LDL Cholesterol, Calc 96.6 mg/dL (0.0-131.0) 06/12/22 07:31 VLDL Cholesterol, Calc 15.70 mg/dL (5.00-40.00) 06/12/22 07:31 HDL Cholesterol 51.70 mg/dL (40.00-60.00) 06/12/22 07:31 Cholesterol/HDL Ratio 3.17 Ratio 06/12/22 07:31 TSH 2.500 mIU/L (0.465-4.680) 06/12/22 07:31 Coronavirus (PCR) Not Detected (Not Detectd) 06/11/22 15:25 06/12/22 13:36 IDENTIFYING DATA: Patient is a 46 years old, male, currently homeless and staying with other friends. HPI: Patient presented to the hospital yesterday by police on petition. Apparently patient made suicidal statements about wanting to drown himself in the river. Patient apparently was admitting to alcohol use and was minimizing his drinking. Patient was seen today and agreeable secret in the office. Patient appeared to be somewhat irritable and was fairly vague and evasive. He demonstrated very poor insight into his drinking and also his need for treatment. He claims that he has been drinking alcohol approximately 6 beers every other day or some vodka. He claims that his mother, [facility] "again". He states that it has been the same problem as a year ago when he got admitted. He spoke negatively about his mother's boyfriend who moved into her house and has been "using her for all her stuff". He states that she and him are "screwing up my life" and he spoke negatively about the both of them. He states that he also had relationship issues with his ex-girlfriend. He claims that he was camping for a while and before he came in the hospital. He states that he is feeling "aggravated" and also depressed. He is admitting to mild anxiety at this time. He is denying any withdrawal symptoms from the alcohol. He is fairly focused on getting benzodiazepines. He cites that he states that his sleep has been on and off. He claims that he is not having suicidal thoughts at this time.. Patient denies any suicidal or homicidal ideations intent or plan. At this time patient denies any auditory or visual hallucinations. Patient denies any flight of ideas racing thoughts and increased in goal directed behavior. Patient admits to using cigarettes daily, alcohol as noted above. PAST PSYCHIATRIC HISTORY: Patient states that she has a history of mood disorder and alcohol abuse. Patient used to be on Zyprexa and also on trazodone in the past. He claims that he is not taking any medications at this time. Patient was last psychiatrically hospitalized a year ago in June. Patient denies any psychiatric outpatient follow-up. Patient denies any history of suicide attempts in the past. PMH:Past Medical History: Hypertension Additional Past Medical History / Comment(s): scioliosis ALLERGIES: as per EMR CHEMICAL DEPENDENCY HISTORY: as per HPI FAMILY PSYCHIATRIC/SUBSTANCE USE HISTORY: denies SOCIAL HISTORY: Patient was born and raised in [facility]. He states that he also grew up in [place]. Patient claims that he completed high school and did an associates degree. He states that he is unemployed at this time. Claims that he is filing for disability. He states that he has an assault charge in the past and went to alf and also 2 DUIs.. MENTAL STATUS EXAM: General Appearance: Patient appears to be tall, multiple tattoos, stated age is alert, guarded/evasive, uncooperative and irritable. Patient appears to have poor hygiene and grooming. Behavior: Patient is seated without any agitated behavior. Uncooperative and irritable Speech: Patient's speech is fluent and nonpressured. Rapid Mood/Affect: Patient reports their mood is depressed and aggravated, affect is congruent and constricted. Suicidality/Homicidality: Patient denies having any homicidal ideation intent or plan. Denies any suicidal ideations intent or plan Perceptions: Patient denies any visual hallucinations and denies any auditory hallucinations Though content/process: There is no evidence of any delusional thought content and thought process is linear. Tangential and also poor insight. Memory and concentration: AOX3, grossly intact for the purposes of this session. Can spell "WORLD" backwards Judgment and insight: poor STRENGTHS/WEAKNESSES: strength is that patient is resilient. Weakness is that patient has poor judgment and is impulsive INTELLECT: average IMPRESSIONS: Depressive disorder unspecified Alcohol use disorder Nicotine dependence Homelessness PLAN: -Patient is admitted under voluntary status to [facility]HU for stabilization of psychiatric symptoms and safety. Patient has signed adult voluntary form and medication consent and is placed in patient's chart. -Medications : Will start patient on Zoloft 50 mg daily for mood/anxiety. Trazodone 100 mg daily at bedtime when necessary for insomnia. Patient refused to take Seroquel or Zyprexa at this time. Valium scheduled 3 times a day, will titrate down gradually. 4 alcohol withdrawal. -Ativan and Haldol PRN for agitation/aggression -CIWA protocol with Ativan PRN for ETOH withdrawal -Patient was counselled on substance abuse and desired to cut back on use however patient does not want to go to rehab. -Patient was informed of the risks, benefits and side effects of the medication and patient verbally consented to taking the medications. Patient signed med consent form and was placed in chart. -Internal Medicine consult to perform medical evaluation and physical. -NRT - nicotine patch -SW on board for discharge planning. Encourage patient to participate in groups to work on coping skills.
[2022-06-12] MEDS: SERTRALINE 50 MG TAB PO SCH (14:11)
[2022-06-12] MEDS: ALBUTEROL INHALER 60 PUFF/8 GM INHALER (MHU) INHALATION SCH ×2 (15:35→21:23)
[2022-06-12] MEDS ORDERED: LORazepam 2 MG/ML INJ IM PRN (18:05)
[2022-06-12] MEDS: SYMBICORT 160-4.5 MCG INHALER (MHU) INHALATION SCH (21:23)
[2022-06-13] MEDS: NICOTINE 14MG/24HR PATCH TRANSDERM SCH (08:20)
[2022-06-13] MEDS: SYMBICORT 160-4.5 MCG INHALER (MHU) INHALATION SCH ×2 (08:21→20:34)
[2022-06-13] MEDS: ALBUTEROL INHALER 60 PUFF/8 GM INHALER (MHU) INHALATION SCH ×4 (08:21→20:33)
[2022-06-13] MEDS: SERTRALINE 50 MG TAB PO SCH (08:23)
[2022-06-13] MEDS: FOLIC ACID 1 MG TAB PO SCH (08:23)
[2022-06-13] MEDS: amLODIPine 10 MG TAB PO SCH (08:23)
[2022-06-13] MEDS: THIAMINE 100 MG TAB PO SCH (08:23)
[2022-06-13] MEDS: diazePAM 5 MG TAB PO SCH ×3 (08:23→21:23)
[2022-06-13] MEDS: MULTIVITAMINS, THERA 1 EACH TAB PO SCH (08:29)
--- NOTE | 2022-06-13 09:57 | P.PN ---
Progress Note - Text Progress Note Date: 06/13/22 Interval History: Patient was seen lying on his bed and was directable and agreeable to speak with senior technical writer in the office. Patient continues to be fairly constricted in his affect. He answered questions appropriately. He continues to state he does not know where he wants to go when he leaves the hospital. He spoke about possibly going to a friend's house to sleep on his couch or go back to the [facility] where he was at. He claims that his mother picked up his clothes yesterday from the [facility] and now he has no close. He claims that he has been eating fairly. He claims that his mood and anxiety (improving. Claims that he was able to sleep about 5-6 hours last night. At this time patient denies any suicidal or homical ideations, intent or plan. Patient denies any auditory, visual hallucinations and denies any paranoia or delusions. Patient denies any side effects from the medications and has been compliant with meds. Mental Status Exam: General Appearance: Patient appears to be tall, multiple tattoos, stated age is alert, guarded/evasive, less irritable today. Patient appears to have poor hygiene and grooming. Behavior: Patient is seated without any agitated behavior. Improving irritable Speech: Patient's speech is fluent and nonpressured. Mood/Affect: Patient reports their mood is improving mildly, affect is congruent and constricted. Suicidality/Homicidality: Patient denies having any homicidal ideation intent or plan. Denies any suicidal ideations intent or plan Perceptions: Patient denies any visual hallucinations and denies any auditory hallucinations Though content/process: There is no evidence of any delusional thought content and thought process is linear. poor insight. Memory and concentration: AOX3, grossly intact for the purposes of this session Judgment and insight: chronically poor, improving mildly IMPRESSIONS: Depressive disorder unspecified Alcohol use disorder Nicotine dependence Homelessness Plan: -Patient continues to meet criteria for inpatient psychiatric admission for symptom stabilization and safety. Patient has signed adult voluntary form and medication consent and was placed in patient's chart. -Medications: Zoloft 50 mg daily for mood/anxiety. Trazodone 100 mg daily at bedtime when necessary for insomnia. decrease Valium 5 mg 3 times a day, will titrate down gradually for alcohol withdrawal. -Ativan and Haldol PRN for agitation/aggression -When necessary Ativan and Haldol for agitation/aggression. -NRT - nicotine patch -SW on board for discharge planning. Encouraged the patient to participate in milieu. Likely discharge in 1-2 days.
--- NOTE | 2022-06-13 12:16 | P.PN ---
Subjective Patient's wheezing significantly improved Constitutional: Denied any fatigue denied any fever. Cardio vascular: denied any chest pain, palpitations Gastrointestinal denied any nausea vomiting Pulmonary: Denied any shortness of breath cough Neurologic denied any new focal deficits All inpatient medications were reviewed and appropriate changes in these medications as dictated in the interval history and assessment and plan. PHYSICAL EXAMINATION: GENERAL: The patient is alert and oriented x3, not in any acute distress. Well developed, well nourished. HEENT: Pupils are round and equally reacting to light. EOMI. No scleral icterus. No conjunctival pallor. Normocephalic, atraumatic. No pharyngeal erythema. No thyromegaly. CARDIOVASCULAR: S1 and S2 present. No murmurs, rubs, or gallops. PULMONARY: Chest is clear to auscultation, no wheezing or crackles. ABDOMEN: Soft, nontender, nondistended, normoactive bowel sounds. No palpable organomegaly. MUSCULOSKELETAL: No joint swelling or deformity. EXTREMITIES: No cyanosis, clubbing, or pedal edema. NEUROLOGICAL: Gross neurological examination did not reveal any focal deficits. SKIN: No rashes. Assessment and plan COPD with mild acute exacerbation patient will be started on inhaled steroids inhalational treatments , significant improvement propranolol is being held because of significant wheezing patient's present heart rate is 75 -Transaminitis: alcohol use patient has acute alcoholic hepatitis never had any withdrawals in the past -Polycythemia secondary to smoking and possibility of mild dehydration no intervention at this time Objective - Vital Signs Vital signs: Vital Signs Temp 97.7 F 06/13/22 07:10 Pulse 75 06/13/22 08:25 Resp 16 06/12/22 21:21 BP 131/92 06/13/22 08:25 Pulse Ox 96 06/12/22 21:21 FiO2 - Labs CBC & Chem 7: 06/12/22 07:31 06/12/22 07:31
[2022-06-13] MEDS: CYCLOBENZAPRINE 10 MG TAB PO PRN (17:44)
[2022-06-14] MEDS: CYCLOBENZAPRINE 10 MG TAB PO PRN (02:27)
[2022-06-14] MEDS: ALBUTEROL INHALER 60 PUFF/8 GM INHALER (MHU) INHALATION SCH ×2 (08:41→12:56)
[2022-06-14] MEDS: NICOTINE 14MG/24HR PATCH TRANSDERM SCH (08:41)
[2022-06-14 08:42] VITALS: BP 113/84; PULSE 90; TEMP 96.9
[2022-06-14] MEDS: SYMBICORT 160-4.5 MCG INHALER (MHU) INHALATION SCH (08:42)
[2022-06-14] MEDS: amLODIPine 10 MG TAB PO SCH (08:42)
[2022-06-14] MEDS: MULTIVITAMINS, THERA 1 EACH TAB PO SCH (08:43)
[2022-06-14] MEDS: SERTRALINE 50 MG TAB PO SCH (08:43)
[2022-06-14] MEDS: THIAMINE 100 MG TAB PO SCH (08:43)
[2022-06-14] MEDS: diazePAM 5 MG TAB PO SCH (08:43)
[2022-06-14] MEDS: FOLIC ACID 1 MG TAB PO SCH (08:43)
--- NOTE | 2022-06-14 11:38 | P.DS ---
Providers Date of admission: 06/11/22 16:40 Expected date of discharge: 06/14/22 Attending physician: Yaw Frost MD Consults: 06/11/22 17:01 Consult Physician Routine Consulting Provider: Misael Rodriguez Consult Reason/Comments: medical management Do you want consulting provider notified?: Yes Primary care physician: Noam Perez - Discharge Diagnosis(es) (1) Depressive disorder Current Visit: Yes Status: Acute Priority: High (2) Alcohol use disorder Current Visit: Yes Status: Acute Priority: High (3) Nicotine dependence Current Visit: Yes Status: Acute Priority: Low (4) Homelessness Current Visit: Yes Status: Acute Priority: Medium Hospital Course: Admission HPI: Admission note was completed by property underwriter "Patient is a 46 years old, male, currently homeless and staying with other friends. Patient presented to the hospital yesterday by police on petition. Apparently patient made suicidal statements about wanting to drown himself in the river. Patient apparently was admitting to alcohol use and was minimizing his drinking. Patient was seen today and agreeable secret in the office. Patient appeared to be somewhat irritable and was fairly vague and evasive. He demonstrated very poor insight into his drinking and also his need for treatment. He claims that he has been drinking alcohol approximately 6 beers every other day or some vodka. He claims that his mother, [facility] "again". He states that it has been the same problem as a year ago when he got admitted. He spoke negatively about his mother's boyfriend who moved into her house and has been "using her for all her stuff". He states that she and him are "screwing up my life" and he spoke negatively about the both of them. He states that he also had relationship issues with his ex-girlfriend. He claims that he was camping for a while and before he came in the hospital. He states that he is feeling "aggravated" and also depressed. He is admitting to mild anxiety at this time. He is denying any withdrawal symptoms from the alcohol. He is fairly focused on getting benzodiazepines. He cites that he states that his sleep has been on and off. He claims that he is not having suicidal thoughts at this time. patient denies any suicidal or homicidal ideations intent or plan. At this time patient denies any auditory or visual hallucinations. Patient denies any flight of ideas racing thoughts and increased in goal directed behavior. Patient admits to using cigarettes daily, alcohol as noted above." Hospital course: Upon admission to the unit patient was directable and agreeable to commence treatment and signed adult voluntary form. Patient signed AMA shortly after on 06/13. Patient got along well with other patients on the unit and followed unit protocol. Patient was compliant with the medications and denied any side effects throughout hospital course. Patient was started on Zoloft 50 mg daily for mood/anxiety. Patient was also started on trazodone when necessary for sleep. Patient was also started on standing dose of Valium for alcohol withdrawal and taper down to a dose of 5 mg twice a day. Patient was also monitored with [facility] protocol and when necessary Ativan. Patient spoke of his stressors and engaged in therapy both group and individual. Patient was also seen by medical team for history and physical exam. Throughout the course of the hospitalization patient gradually improved with regards to mood, anxiety, sleep and returned back to their baseline level of functioning. On the day of discharge patient denied any suicidal or homicidal ideations intent or plan denied any auditory or visual hallucinations. Patient endorsed wanting to live for his future and to find housing. The patient denied any access to guns or weapons. Patient denied any paranoia and did not endorse any delusions. Patient does have a significant history of substance abuse and was counseled on abstaining from all substances including alcohol and marijuana. Patient was offered however declined inpatient substance-abuse rehab. Patient was also counseled on the medications and need for regular compliance and was encouraged to follow-up with their outpatient appointment for mental health and also for primary care. Prior to discharge a family meeting will be arranged by high school social studies tutor to answer any questions and ensure safety upon discharge. Patient will either be discharged back to his mother's house versus going back to the campground where he was staying at. Mental status exam: General Appearance: Patient appears to be tall, multiple tattoos, stated age is alert, pleasant, and directable. Patient is in no acute distress and has improved hygiene and grooming Behavior: Patient is calmly seated without any agitated behavior. Speech: Patient's speech is fluent and nonpressured. [place] and monotone Mood/Affect: Patient reports their mood is "ok", affect is congruent and euthymic. Suicidality/Homicidality: Patient denies having any suicidal or homicidal ideation intent or plan. Perceptions: Patient denies any auditory or visual hallucinations. Though content/process: There is no evidence of any delusional thought content and thought process is linear and goal-directed. Memory and concentration: AOX3, grossly intact for the purposes of this session. Can spell "WORLD" backwards correctly. Judgment and insight: chronically poor, however has improved with guarded prognosis Impression: Depressive disorder unspecified Alcohol use disorder Homelessness Nicotine dependence Plan: -Continue with discharge today as patient has improved and stabilized psychiatrically and is not currently an imminent threat to himself and/or others. Patient will remain at chronically elevated risk for harm to self and/or others due to his impulsivity and substance abuse. -Continue medications: Zoloft 50 mg daily for mood/anxiety, trazodone 100 mg daily at bedtime when necessary for insomnia. Patient will be given 2 more days of Valium 5 mg twice a day for alcohol withdrawal. -Patient was counseled on the need for medication compliance and appropriate follow-up at mental health and also primary care for medical issues. Patient verbalized understanding and agreed. -Social work to arrange for and conduct family meeting to ensure safety upon discharge and answer any questions/concerns. Mother to work with patient whether he is going back to stay with her at her house versus going back to the campground with his belongings. Social work also to arrange for patients follow up appointments with [facility] for psychiatric care along with follow up with primary care provider. -Patient counseled on abstaining from recreational drugs and marijuana and alcohol. Was informed/educated on the adverse effects on their physical and mental health. Patient verbally agreed and understood. Patient was offered substance abuse treatment however declined at this time. -Patient was instructed to return to the hospital or seek immediate medical care if their psychiatric or medical symptoms do worsen or reoccur. Allergies Allergy/AdvReac Type Severity Reaction Status Date / Time Mushroom AdvReac Nausea & Verified 06/11/22 17:23 Vomiting & Diarrhea & Dizziness Laboratory Results WBC 5.3 k/uL (3.8-10.6) 06/12/22 07:31 RBC 4.77 m/uL (4.30-5.90) 06/12/22 07:31 Hgb 18.3 gm/dL (13.0-17.5) H 06/12/22 07: Hct 53.3 % (39.0-53.0) H 06/12/22 07: MCV 111.6 fL (80.0-100.0) H 06/12/22 07: MCH 38.3 pg (25.0-35.0) H 06/12/22 07: MCHC 34.4 g/dL (31.0-37.0) 06/12/22 07: RDW 13.2 % (11.5-15.5) 06/12/22 07: Plt Count 206 k/uL (150-450) 06/12/22 07: MPV 9.8 06/12/22 07: Neutrophils % 57 % 06/12/22 07: Lymphocytes % 31 % 06/12/22 07: Monocytes % 7 % 06/12/22 07: Eosinophils % 2 % 06/12/22 07: Basophils % 1 % 06/12/22 07: Neutrophils # 3.1 k/uL (1.3-7.7) 06/12/22 07: Lymphocytes # 1.7 k/uL (1.0-4.8) 06/12/22 07: Monocytes # 0.4 k/uL (0-1.0) 06/12/22 07: Eosinophils # 0.1 k/uL (0-0.7) 06/12/22 07: Basophils # 0.1 k/uL (0-0.2) 06/12/22 07:31 Manual Slide Review Performed 06/12/22 07:31 Macrocytosis Marked A 06/12/22 07:31 Sodium 142 mmol/L (137-145) 06/12/22 07:31 Potassium 4.2 mmol/L (3.5-5.1) 06/12/22 07: Chloride 105 mmol/L (98-107) 06/12/22 07: Carbon Dioxide 29 mmol/L (22-30) 06/12/22 07:31 Anion Gap 8 mmol/L 06/12/22 07:31 BUN 10 mg/dL (9-20) 06/12/22 07: Creatinine 0.64 mg/dL (0.66-1.25) L 06/12/22 07:31 Est GFR (CKD-EPI)AfAm >90 (>60 ml/min/1.73 sqM) 06/12/22 07:31 Est GFR (CKD-EPI)NonAf >90 (>60 ml/min/1.73 sqM) 06/12/22 07:31 Glucose 98 mg/dL (74-99) 06/12/22 07:[address] Glu mg/dL 104 06/12/22 07:31 Hemoglobin A1c 5.2 % (0.0-6.0) 06/12/22 07: Calcium 9.6 mg/dL (8.4-10.2) 06/12/22 07: Total Bilirubin 0.9 mg/dL (0.2-1.3) 06/12/22 07:31 AST 170 U/L (17-59) H 06/12/22 07:31 ALT 149 U/L (4-49) H 06/12/22 07:31 Alkaline Phosphatase 93 U/L (38-126) 06/12/22 07: Total Protein 7.2 g/dL (6.3-8.2) 06/12/22 07: Albumin 4.3 g/dL (3.5-5.0) 06/12/22 07: Triglycerides 78.50 mg/dL (0.00-149.00) 06/12/22 07: Cholesterol 164.00 mg/dL (0.00-200.00) 06/12/22 07:31 LDL Cholesterol, Calc 96.6 mg/dL (0.0-131.0) 06/12/22 07: VLDL Cholesterol, Calc 15.70 mg/dL (5.00-40.00) 06/12/22 07:31 HDL Cholesterol 51.70 mg/dL (40.00-60.00) 06/12/22 07: Cholesterol/HDL Ratio 3.17 Ratio 06/12/22 07: TSH 2.500 mIU/L (0.465-4.680) 06/12/22 07:31 Coronavirus (PCR) Not Detected (Not Detectd) 06/11/22 15:25 Vital Signs Temp 96.9 F L 06/14/22 08:41 Pulse 90 06/14/22 08:41 Resp 16 06/14/22 08:41 BP 113/84 06/14/22 08:41 Pulse Ox 95 06/14/22 08:41 FiO2 Patient Condition at Discharge: Stable Plan - Discharge Summary Discharge Rx Participant: No New Discharge Prescriptions: New traZODone HCL [Desyrel] 100 mg PO HS PRN #14 tab PRN Reason: Insomnia Cyclobenzaprine [Flexeril] 10 mg PO TID PRN tab PRN Reason: Muscle Spasm Folic Acid 1 mg PO DAILY tab Multivitamins, Thera [Multivitamin (formulary)] 1 each PO DAILY tab Budesonide-Formot 160-4.5 Mcg [Symbicort 160-4.5 Mcg Inhaler] 2 puff INHALATION BID #1 each diazePAM [Valium] 5 mg PO BID 2 Days #4 tab Thiamine [Vitamin B-1] 100 mg PO DAILY tab Sertraline [Zoloft] 50 mg PO DAILY 30 Days tab Nicotine 14Mg/24Hr Patch [Habitrol] 1 patch TRANSDERM DAILY 14 Days patch Albuterol Inhaler [Ventolin Hfa Inhaler] 2 puff INHALATION RT-QID #1 each Continue amLODIPine [Norvasc] 10 mg PO DAILY Propranolol HCl [Propranolol HCl ER] 80 mg PO DAILY Discontinued LORazepam [Ativan] 0.5 mg PO BID PRN PRN Reason: Anxiety Cyclobenzaprine [Flexeril] 10 mg PO TID PRN PRN Reason: Muscle Spasm traZODone HCL 150 mg PO DAILY PRN PRN Reason: Insomnia Discharge Medication List amLODIPine [Norvasc] 10 mg PO DAILY 08/08/21 [History] Propranolol HCl [Propranolol HCl ER] 80 mg PO DAILY 06/11/22 [History] Albuterol Inhaler [Ventolin Hfa Inhaler] 2 puff INHALATION RT-QID #1 each 06/14/22 [Rx] Budesonide-Formot 160-4.5 Mcg [Symbicort 160-4.5 Mcg Inhaler] 2 puff INHALATION BID #1 each 06/14/22 [Rx] Cyclobenzaprine [Flexeril] 10 mg PO TID PRN tab 06/14/22 [Rx] Folic Acid 1 mg PO DAILY tab 06/14/22 [Rx] Multivitamins, Thera [Multivitamin (formulary)] 1 each PO DAILY tab 06/14/22 [Rx] Nicotine 14Mg/24Hr Patch [Habitrol] 1 patch TRANSDERM DAILY 14 Days patch 06/14/22 [Rx] Sertraline [Zoloft] 50 mg PO DAILY 30 Days tab 06/14/22 [Rx] Thiamine [Vitamin B-1] 100 mg PO DAILY tab 06/14/22 [Rx] diazePAM [Valium] 5 mg PO BID 2 Days #4 tab 06/14/22 [Rx] traZODone HCL [Desyrel] 100 mg PO HS PRN #14 tab 06/14/22 [Rx] Follow up Appointment(s)/Referral(s): [facility] [Outside] - 06/21/22 11:30 am (06-21-22 @ 11:30 with Zia/JOSE 06-28-22 @ 1:00 with Juan/therapist) Noam Perez MD [Primary Care Provider] - 1-2 days Patient Instructions/Handouts: How to Stop Smoking (DC), Depression (DC), Alcohol Intoxication (DC) Activity/Diet/Wound Care/Special Instructions: Avoid the use of street drugs and alcohol. Take all prescriptions as prescribed. When you are in need of refills on your medications, please contact your medical provider and/or outpatient psychiatrist to have this done. Please go to scheduled outpatient appointment for aftercare treatment. If symptoms return or become worse, call the crisis line at and/or go to the nearest emergency room for evaluation. Discharge Disposition: OTHER INSTITUTION NOT DEFINED
[2022-06-14] MEDS ORDERED: diazePAM 5 MG TAB PO SCH (21:00)
== END 2022-06-14 13:30 | disposition home or self-care (01) | DRG 881 ==
LOC: EC 07:52 → SUPCPDRO 07:52 → EC 16:13 → 3MHU 16:40
PROVIDERS: ADMIT Psychiatry & Neurology Psychiatry; ATTEND Psychiatry & Neurology Psychiatry
DX: F32.A Depression, unspecified (principal); J44.1 Chronic obstructive pulmonary disease with (acute) exacerbation; R45.851 Suicidal ideations; F10.239 Alcohol dependence with withdrawal, unspecified; K70.10 Alcoholic hepatitis without ascites; F10.229 Alcohol dependence with intoxication, unspecified; Z20.822 Contact with and (suspected) exposure to COVID-19; Z28.310 Unvaccinated for COVID-19; D75.1 Secondary polycythemia; E86.0 Dehydration; I10 Essential (primary) hypertension; F41.9 Anxiety disorder, unspecified; G47.00 Insomnia, unspecified; G89.29 Other chronic pain; M54.50 Low back pain, unspecified; F17.210 Nicotine dependence, cigarettes, uncomplicated; Z71.6 Tobacco abuse counseling; Z79.899 Other long term (current) drug therapy; Z59.00 Homelessness unspecified; Z56.0 Unemployment, unspecified; Z71.41 Alcohol abuse counseling and surveillance of alcoholic; Z71.51 Drug abuse counseling and surveillance of drug abuser
CPT/HCPCS: 80053; 80061; 82075; 83036; 84443; 85025; 87635; 99285

== ENCOUNTER 2022-08-24 01:59 | Inpatient (IN) | payer MEDICAID, OTHER ==
--- NOTE | 2022-08-24 02:58 | ED ---
General Adult HPI - General Chief complaint: Psychiatric Symptoms Stated complaint: Mental Health, LE Petition Time Seen by Provider: 08/24/22 02:25 Source: patient, police Mode of arrival: ambulatory - History of Present Illness Initial comments: Dictation was produced using [employer] dictation software. please excuse any grammatical, word or spelling errors. Chief Complaint: 46-year-old male presents emergency department for suicidal ideation History of Present Illness: Patient is a 46-year-old male is petitioned by his mother for making suicidal comments. Patient alleges that he would hang himself. Enforcement was called patient is brought to the ER. Patient denies such comments. The ROS documented in this emergency department record has been reviewed and confirmed by me. Those systems with pertinent positive or negative responses have been documented in the HPI. All other systems are other negative and/or noncontributory. PHYSICAL EXAM: General Impression: Alert and oriented x3, not in acute distress HEENT: Normocephalic atraumatic, extra-ocular movements intact, pupils equal and reactive to light bilaterally, mucous membranes moist. Cardiovascular: Heart regular rate and rhythm Chest: Able to complete full sentences, no retractions, no tachypnea Abdomen: abdomen soft, non-tender, non-distended, no organomegaly Musculoskeletal: Pulses present and equal in all extremities, no peripheral edema Motor: no focal deficits noted Neurological: CN II-XII grossly intact, no focal motor or sensory deficits noted Skin: Intact with no visualized rashes Psych: Normal affect and mood ED course: 46-year-old male petitioned by mother for suicidal ideation. Vital signs are within acceptable limits. Elevated breath alcohol test of 208. Petitioned reviewed. Pending EPS evaluation. - Related Data Home Medications Medication Instructions Recorded Confirmed amLODIPine [Norvasc] 10 mg PO DAILY 08/08/21 08/24/22 Propranolol HCl [Propranolol HCl 80 mg PO DAILY 06/11/22 08/24/22 ER] Budesonide-Formot 160-4.5 Mcg 2 puff INHALATION RT-BID 08/24/22 08/24/22 [Symbicort 160-4.5 Mcg Inhaler] LORazepam [Ativan] 0.5 mg PO BID PRN 08/24/22 08/24/22 Pantoprazole [Protonix] 40 mg PO DAILY 08/24/22 08/24/22 Previous Rx's Medication Instructions Recorded Albuterol Inhaler [Ventolin Hfa 2 puff INHALATION RT-QID #1 each 06/14/22 Inhaler] Cyclobenzaprine [Flexeril] 10 mg PO TID PRN tab 06/14/22 Sertraline [Zoloft] 50 mg PO DAILY 30 Days tab 06/14/22 traZODone HCL [Desyrel] 100 mg PO HS PRN #14 tab 06/14/22 Allergies Allergy/AdvReac Type Severity Reaction Status Date / Time Mushroom AdvReac Nausea & Verified 08/24/22 09:34 Vomiting & Diarrhea & Dizziness Review of Systems ROS Statement: Those systems with pertinent positive or pertinent negative responses have been documented in the HPI. ROS Other: All systems not noted in ROS Statement are negative. Past Medical History Past Medical History: Hypertension Additional Past Medical History / Comment(s): scioliosis History of Any Multi-Drug Resistant Organisms: None Reported Past Surgical History: No Surgical Hx Reported Additional Past Surgical History / Comment(s): vasectomy Past Psychological History: Depression Smoking Status: Current every day smoker Past Alcohol Use History: Occasional Past Drug Use History: Marijuana - Past Family History Family Family Medical History: No Reported History Course Vital Signs 08/24/22 02:13 Temperature 97.7 F Pulse Rate 82 Respiratory 18 Rate Blood Pressure 123/86 O2 Sat by Pulse 96 Oximetry Medical Decision Making - Medical Decision Making Patient evaluated by EPS and recommended inpatient psychiatric admission. - Lab Data Lab Results 08/24/22 Range/Units 11:43 Coronavirus (PCR) Not Detected (Not Detectd) Disposition Clinical Impression: Suicidal ideation Disposition: ADMITTED IP TO THIS HOSP Condition: Fair
[2022-08-24] MEDS ORDERED: HALOPERIDOL LACTATE 5 MG/ML 1 ML VIAL IM PRN (13:14)
[2022-08-24] MEDS ORDERED: MAG HYDROX/AL HYDROX/SIMETH 30 ML CUP PO PRN (13:14)
[2022-08-24] MEDS ORDERED: LORazepam 1 MG TAB PO PRN (13:14)
[2022-08-24] MEDS ORDERED: MAGNESIUM HYDROXIDE 2,400 MG/10 ML CUP PO PRN (13:14)
[2022-08-24] MEDS ORDERED: haloperidoL 5 MG TAB PO PRN (13:17)
[2022-08-24] MEDS ORDERED: LORazepam 2 MG/ML INJ IM PRN (13:18)
[2022-08-24] MEDS ORDERED: OLANZapine 10 MG VIAL IM PRN (13:20)
[2022-08-24] MEDS ORDERED: OLANZapine 5 MG TAB PO PRN (13:20)
[2022-08-24] MEDS ORDERED: hydrOXYzine pamoate 25 MG CAP PO PRN (13:21)
[2022-08-24] MEDS ORDERED: hydrOXYzine HCL 50 MG/ML 1 ML VIAL IM PRN (13:21)
[2022-08-24] MEDS: NICOTINE 21MG/24HR PATCH TRANSDERM SCH (13:26)
[2022-08-24] MEDS ORDERED: ALBUTEROL INHALER 60 PUFF/8 GM INHALER (MHU) INHALATION PRN (17:10)
--- NOTE | 2022-08-24 17:22 | P.MDCNMH ---
History of Present Illness H&P Date: 08/24/22 Chief Complaint: Medical management/clearance 46-year-old man with medical history of hypertension, acid reflux, essential tremor presented for mental health evaluation after reporting suicidal ideation with plan. Medicine is consulted for medical clearance as well as medical management. She has stable medical conditions with no acute complaints at this time. He denies fevers, chills, nausea, vomiting, chest pain, palpitations, syncope, presyncope, constipation, diarrhea, dysuria, dyschezia, numbness/weakness of extremities. On my evaluation, patient's hemodynamically stable. His Covid is negative. No images to review. All Systems reviewed and pertinent positives and negatives noted in HPI, all other symptoms are negative Gen: in no apparent distress, resting comfortably in bed Eyes: PERRL, no scleral injection or icterus HENT: normocephalic, atraumatic, good hearing acuity, moist mucous membranes Neck: no tracheal deviation, full range of motion Resp: good air exchange, breathing comfortably with no accessory muscle use, no tactile fremitus CVS: good distal perfusion x 4, no pitting edema GI: soft, NTTP, ND, no hepatosplenomegaly : no suprapubic tenderness, no CVAT, tristan catheter not present MSK: no clubbing, no cyanosis, no noted contractures of extremities Skin: no noted rashes, petechiae; temperature of skin is appropriate Neuro: moving all extremities without signs of weakness, CN II-XII intact Psych: cooperative, euthymic mood, insight and judgment intact Labs and imaging as above Assessment/plan: Hypertension Essential tremor -Resume patient's propanolol and amlodipine GERD -Resume patient's PPI Depression Suicidal ideation -Care per primary team Patient is full code Past Medical History Past Medical History: Hypertension Additional Past Medical History / Comment(s): scioliosis History of Any Multi-Drug Resistant Organisms: None Reported Past Surgical History: No Surgical Hx Reported Additional Past Surgical History / Comment(s): vasectomy Past Psychological History: Depression Smoking Status: Current every day smoker Past Alcohol Use History: Occasional Past Drug Use History: Marijuana - Past Family History Family Family Medical History: No Reported History Medications and Allergies Home Medications Medication Instructions Recorded Confirmed Type amLODIPine [Norvasc] 10 mg PO DAILY 08/08/21 08/24/22 History Propranolol HCl [Propranolol HCl 80 mg PO DAILY 06/11/22 08/24/22 History ER] Albuterol Inhaler [Ventolin Hfa 2 puff INHALATION RT-QID #1 each 06/14/22 08/24/22 Rx Inhaler] Cyclobenzaprine [Flexeril] 10 mg PO TID PRN tab 06/14/22 08/24/22 Rx Sertraline [Zoloft] 50 mg PO DAILY 30 Days tab 06/14/22 08/24/22 Rx traZODone HCL [Desyrel] 100 mg PO HS PRN #14 tab 06/14/22 08/24/22 Rx Budesonide-Formot 160-4.5 Mcg 2 puff INHALATION RT-BID 08/24/22 08/24/22 History [Symbicort 160-4.5 Mcg Inhaler] LORazepam [Ativan] 0.5 mg PO BID PRN 08/24/22 08/24/22 History Pantoprazole [Protonix] 40 mg PO DAILY 08/24/22 08/24/22 History Allergies Allergy/AdvReac Type Severity Reaction Status Date / Time Mushroom AdvReac Nausea & Verified 08/24/22 09:34 Vomiting & Diarrhea & Dizziness Physical Exam Osteopathic Statement: *. No significant issues noted on an osteopathic structural exam other than those noted in the History and Physical/Consult. Vitals: Vital Signs Temp Pulse Resp BP Pulse Ox 08/24/22 02:13 97.7 F 82 18 123/86 96 Intake and Output 08/24/22 08/24/22 08/24/22 06:59 14:59 22:59 Other: Weight 90.718 kg Cranial Nerve Examination - Cranial Nerves Cranial Nerve II- Optic: Intact Cranial Nerve III- Oculomotor: Intact Cranial Nerve IV- Trochlear: Intact Cranial Nerve V- Trigeminal: Intact Cranial Nerve - Abducens: Intact Cranial Nerve VII- Facial: Intact Cranial Nerve VIII- Auditory: Intact Cranial Nerve IX- Glossopharyngeal: Intact Cranial Nerve X- Vagus: Intact Cranial Nerve XI- Accessory: Intact Cranial Nerve XII- Hypoglossal: Intact
[2022-08-24] MEDS: chlordiazePOXIDE 25 MG CAP PO SCH ×2 (17:26→20:16)
[2022-08-24] MEDS: SYMBICORT 160-4.5 MCG INHALER (MHU) INHALATION SCH (20:14)
[2022-08-24] MEDS: ACETAMINOPHEN TAB 325 MG TAB PO PRN (20:17)
[2022-08-25] MEDS: SYMBICORT 160-4.5 MCG INHALER (MHU) INHALATION SCH ×2 (08:06→21:17)
[2022-08-25] MEDS: PANTOPRAZOLE 40 MG TABLET PO SCH (08:07)
[2022-08-25] MEDS: amLODIPine 10 MG TAB PO SCH (09:29)
[2022-08-25] MEDS: NICOTINE 21MG/24HR PATCH TRANSDERM SCH ×3 (09:30→10:24)
[2022-08-25] MEDS: PROPRANOLOL LA 80 MG CAP.SA.24H PO SCH (09:30)
[2022-08-25] MEDS: chlordiazePOXIDE 25 MG CAP PO SCH ×3 (10:21→22:29)
--- NOTE | 2022-08-25 12:14 | P.HP ---
Psychiatric H&P - . H&P Date: 08/25/22 History & Physical: Allergies Allergy/AdvReac Type Severity Reaction Status Date / Time Mushroom AdvReac Nausea & Verified 08/24/22 09:34 Vomiting & Diarrhea & Dizziness Vital Signs Temp 97.8 F 08/25/22 06:48 Pulse 70 08/25/22 06:48 Resp 16 08/25/22 06:48 BP 138/82 08/25/22 06:48 Pulse Ox 96 08/24/22 02:13 FiO2 Intake & Output 08/24/22 08/25/22 08/25/22 18:59 06:59 18:59 Weight 85.5 kg Laboratory Last Values Coronavirus (PCR) Not Detected (Not Detectd) 08/24/22 11:43 08/25/22 12:13 IDENTIFYING DATA: Patient is a 46-year-old male with significant history of alcohol use disorder presented to the hospital on a petition certification for suicidal ideation with a plan to hang himself HPI: Patient presented to the hospital on 08/24/2022, Brought in under petition by police for suicidal ideation was a threat to hang himself. Upon presentation in the emergency department, the patient was noted to be very irritable and wanting to isolate himself. He reported that "nothing even matters." The patient has been dealing with an ongoing substance use disorder and feels that he is stuck in the [place] area with no housing and no appropriate resources. He does express hopelessness, low appetite, dysphoria, and poor sleep. He has been living in a campsite in [place]. 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 Currently, the patient is denying any suicidal ideation however reports that he feels like there is no point to anything as he is likely to this winter since he has no housing. He is not reporting any homicidal ideation aside from wanting to hurt his ex-friend who is been living with his mother. He is not reporting any auditory or visual hallucinations. He denies any paranoia or other delusions. The patient is not reporting any significant symptoms of bipolar disorder. He denies any previous excessive energy, grandiosity, or increased goal-directed activity. The patient does report that he is irritable and annoyed with the substance use court order. The patient is wishing to sign himself voluntarily at the psychiatric unit so that he may not have to deal with ongoing court orders. PAST PSYCHIATRIC HISTORY: Patient has a history of mood disorder and alcohol abuse the patient has previously trialed Zyprexa, trazodone, and Zoloft. He was last hospitalized on a psychiatric unit in May 2022. Patient denies any psychiatric outpatient follow-up. Patient denies any history of suicide attempts in the past. PMH: Past Medical History: Hypertension Additional Past Medical History / Comment(s): scioliosis History of Any Multi-Drug Resistant Organisms: None Reported Past Surgical History: No Surgical Hx Reported Additional Past Surgical History / Comment(s): vasectomy Past Psychological History: Depression Smoking Status: Current every day smoker Past Alcohol Use History: Occasional Past Drug Use History: Marijuana ALLERGIES: Mushrooms CHEMICAL DEPENDENCY HISTORY: The patient reports that he has been drinking a sixpack of beer daily. He reports occasional marijuana use. He denies any illicit drug use to this provider. He does admit to tobacco use daily. FAMILY PSYCHIATRIC/SUBSTANCE USE HISTORY: No reported family psychiatric history. SOCIAL HISTORY: Patient is currently homeless and has been living in a campground in [place], [place]. He was born and raised in [place], [place]. He grew up in [place], [place]. He is currently unemployed at this time. He has a history of incarceration for an assault charge and also a histo ry of 2 DUIs. MENTAL STATUS EXAM: General Appearance: Patient appears to be stated age is alert, directable, and attempts to cooperate. Patient appears to have disheveled hygiene and grooming. Behavior: Patient is seated without any agitated behavior. Eye contact is appropriate Speech: Patient's speech is fluent and nonpressured. Mood/Affect: Patient reports their mood is depressed, affect is congruent and constricted. Suicidality/Homicidality: Mild homicidal threats towards his ex-best friend who lives with his mother. Passive thoughts of suicide. Perceptions: Patient denies any visual hallucinations and denies any auditory hallucinations Though content/process: There is no evidence of any delusional thought content and thought process is linear and goal-directed. Memory and concentration: AOX3, grossly intact for the purposes of this session. Can spell "WORLD" backwards Judgment and insight: Poor STRENGTHS/WEAKNESSES: Strength is that the patient is resilient and resourceful. Weakness is that the patient has a history of substance abuse and incarceration. INTELLECT: average IMPRESSIONS: Depressive disorder, unspecified Alcohol use disorder Tobacco use disorder Homelessness PLAN: -Patient is admitted under involuntary however converted to voluntary status to MHU for stabilization of psychiatric symptoms and safety. Patient signed adult voluntary form and medication consent and is placed in patient's chart. -Medications : Will start patient on Remeron 15 mg by mouth at bedtime for depression/insomnia/appetite Librium 25 mg by mouth 3 times a day for alcohol withdrawal -Ativan PRN for agitation/aggression -[facility] protocol with Ativan PRN for ETOH withdrawal -Patient was counselled on substance abuse and desired to cut back on use -Patient was informed of the risks, benefits and side effects of the medication and patient verbally consented to taking the medications. Patient signed med consent form and was placed in chart. -Internal Medicine consult to perform medical evaluation and physical. -NRT - nicotine patch -SW on board for discharge planning. Encourage patient to participate in groups to work on coping skills. 08/25/22 12:13
[2022-08-25] MEDS: MIRTAZAPINE 15 MG TAB PO SCH (22:29)
[2022-08-26] MEDS: SYMBICORT 160-4.5 MCG INHALER (MHU) INHALATION SCH ×2 (08:37→23:06)
[2022-08-26] MEDS: amLODIPine 10 MG TAB PO SCH (08:38)
[2022-08-26] MEDS: PROPRANOLOL LA 80 MG CAP.SA.24H PO SCH (08:38)
[2022-08-26] MEDS: PANTOPRAZOLE 40 MG TABLET PO SCH (08:38)
[2022-08-26] MEDS: ACETAMINOPHEN TAB 325 MG TAB PO PRN (08:40)
[2022-08-26] MEDS: chlordiazePOXIDE 25 MG CAP PO SCH ×3 (08:41→23:05)
[2022-08-26 10:37] LABS: Basophils # (A) 0.1 k/uL (0-0.2); Basophils % (A) 1 %; Eosinophils # (A) 0.2 k/uL (0-0.7); Eosinophils % (A) 3 %; HCT 53.2 % (39.0-53.0); HGB 18.4 gm/dL (13.0-17.5); Lymphocytes # (A) 1.1 k/uL (1.0-4.8); Lymphocytes % (A) 21 %; MCH 35.8 pg (25.0-35.0); MCHC 34.5 g/dL (31.0-37.0); MCV 103.6 fL (80.0-100.0); Macrocytosis Slight; Mean Platelet Volume 9.4; Monocytes # (A) 0.3 k/uL (0-1.0); Monocytes % (A) 5 %; Neutrophils # (A) 3.8 k/uL (1.3-7.7); Neutrophils % (A) 69 %; Platelet Count 162 k/uL (150-450); RBC 5.14 m/uL (4.30-5.90); RDW 12.4 % (11.5-15.5); WBC 5.5 k/uL (3.8-10.6)
[2022-08-26 10:58] LABS: ALT 75 U/L (4-49); AST 127 U/L (17-59); African American GFR (CKD) >90 (>60 ml/min/1.73 sqM); Albumin 4.4 g/dL (3.5-5.0); Alkaline Phosphatase 101 U/L (38-126); Anion Gap 11 mmol/L; Blood Urea Nitrogen 13 mg/dL (9-20); Calcium 9.5 mg/dL (8.4-10.2); Carbon Dioxide 26 mmol/L (22-30); Chloride 103 mmol/L (98-107); Glucose 147 mg/dL (74-99); Non-African American GFR(CKD) >90 (>60 ml/min/1.73 sqM); Potassium 4.1 mmol/L (3.5-5.1); Sodium 140 mmol/L (137-145); Total Bilirubin 0.7 mg/dL (0.2-1.3); Total Protein 7.1 g/dL (6.3-8.2)
--- NOTE | 2022-08-26 11:02 | P.PN ---
Subjective Progress Note Date: 08/26/22 Principal diagnosis: IMPRESSIONS: Depressive disorder, unspecified Alcohol use disorder Tobacco use disorder Homelessness Subjective data: The patient was seen in his room while he was laying in bed The patient continues to be wanting to be left alone and gives superficial and flippant answers Patient admits that he still feels depressed and that he is here for substance use Patient did not want to elaborate he wanted to left alone and eventually pulled the sheet over his face and stated that he was done Findings and except from the assessment from the previous day to gather further information '' : Patient presented to the hospital on 08/24/2022, Brought in under petition by police for suicidal ideation was a threat to hang himself. Upon presentation in the emergency department, the patient was noted to be very irritable and wanting to isolate himself. He reported that "nothing even matters." The patient has been dealing with an ongoing substance use disorder and feels that he is stuck in the [facility] with no housing and no appropriate resources. He does express hopelessness, low appetite, dysphoria, and poor sleep. He has been living in a campsite in [place]. 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 Currently, the patient is denying any suicidal ideation however reports that he feels like there is no point to anything as he is likely to this winter since he has no housing. He is not reporting any homicidal ideation aside from wanting to hurt his ex- friend who is been living with his mother. He is not reporting any auditory or visual hallucinations. He denies any paranoia or other delusions. The patient is not reporting any significant symptoms of bipolar disorder. He denies any previous excessive energy, grandiosity, or increased goal-directed activity. The patient does report that he is irritable and annoyed with the substance use court order. The patient is wishing to sign himself voluntarily at the psychiatric unit so that he may not have to deal with ongoing court orders.'' 'Patient has a history of mood disorder and alcohol abuse the patient has previously trialed Zyprexa, trazodone, and Zoloft. He was last hospitalized on a psychiatric unit in May 2022. Patient denies any psychiatric outpatient follow-up. Patient denies any history of suicide attempts in the past.' MENTAL STATUS EXAM: The patient was seen while he was laying on bed Patient continues to be wanting to sleep and only response occasionally General Appearance: Patient appears to be stated age is alert, directable, and not cooperative. Patient appears to have disheveled hygiene and grooming. Behavior: Patient was laying in bed without any agitated behavior. Eye contact is occasional Speech: Patient's speech is fluent and nonpressured. But sparse Mood/Affect: Patient reports their mood is depressed, affect is congruent and constricted. Suicidality/Homicidality: Mild homicidal threats towards his ex-best friend who lives with his mother. Passive thoughts of suicide. From previous assessment Patient did not discuss any suicidal or homicidal ideations at this time Perceptions: Patient denies any visual hallucinations and denies any auditory alvarez llucinations Though content/process: There is no evidence of any delusional thought content and thought process is linear and goal-directed. Memory and concentration: AOX3, grossly intact for the purposes of this session. Can spell "WORLD" backwards Judgment and insight: Poor IMPRESSIONS: Subjective data: Depressive disorder, unspecified Alcohol use disorder Tobacco use disorder Homelessness PLAN: -Patient is admitted under involuntary however converted to voluntary status to MHU for stabilization of psychiatric symptoms and safety. Patient signed adult voluntary form and medication consent and is placed in patient's chart. -Medications : Remeron 15 mg by mouth at bedtime for depression/insomnia/appetite Librium 25 mg by mouth 3 times a day for alcohol withdrawal -Ativan PRN for agitation/aggression -[facility] protocol with Ativan PRN for ETOH withdrawal -Patient was counselled on substance abuse and desired to cut back on use -Patient was informed of the risks, benefits and side effects of the medication and patient verbally consented to taking the medications. Patient signed med consent form and was placed in chart. -Internal Medicine consult to perform medical evaluation and physical. -NRT - nicotine patch -SW on board for discharge planning. Encourage patient to participate in groups to work on coping skills. Objective - Vital Signs Vital signs: Vital Signs Temp 97.8 F 08/25/22 06:48 Pulse 91 08/25/22 17:28 Resp 16 08/25/22 17:28 BP 132/90 08/25/22 17:28 Pulse Ox 96 08/24/22 02:13 FiO2 - Labs CBC & Chem 7: 08/26/22 10:12 Labs: Abnormal Lab Results - Last 24 Hours (Table) 08/26/22 Range/Units 10:12 Hgb 18.4 H (13.0-17.5) gm/dL Hct 53.2 H (39.0-53.0) % MCV 103.6 H (80.0-100.0) fL MCH 35.8 H (25.0-35.0) pg
[2022-08-26 16:49] LABS: Chol/HDL Ratio 3.17 Ratio; LDL Cholesterol,Calculated 87.6 mg/dL (0.0-131.0); VLDL Calculation 17.22 mg/dL (5.00-40.00)
[2022-08-26] MEDS: CYCLOBENZAPRINE 5 MG TAB PO SCH ×2 (23:05→23:07)
[2022-08-26] MEDS: MIRTAZAPINE 15 MG TAB PO SCH (23:05)
[2022-08-27] MEDS: chlordiazePOXIDE 25 MG CAP PO SCH ×3 (08:41→22:47)
[2022-08-27] MEDS: CYCLOBENZAPRINE 5 MG TAB PO SCH ×3 (08:41→22:47)
[2022-08-27] MEDS: amLODIPine 10 MG TAB PO SCH (08:42)
[2022-08-27] MEDS: SYMBICORT 160-4.5 MCG INHALER (MHU) INHALATION SCH ×2 (08:42→21:11)
[2022-08-27] MEDS: PANTOPRAZOLE 40 MG TABLET PO SCH (08:42)
[2022-08-27] MEDS: NICOTINE 21MG/24HR PATCH TRANSDERM SCH ×2 (08:44→11:24)
--- NOTE | 2022-08-27 10:43 | P.PN ---
Subjective Progress Note Date: 08/27/22 Principal diagnosis: IMPRESSIONS: Depressive disorder, unspecified Alcohol use disorder Tobacco use disorder Homelessness Subjective data: Patient reports that he did not sleep well last night He states that he would like to use something that he could help him with sleep He admits that he used to drink 2-4 beers every night before bedtime The patient was seen in his room while he was laying in bed The patient continues to be wanting to be left alone and gives superficial and flippant answers Patient admits that he still feels depressed and that he is here for substance use Findings and except from the assessment from the previous day to gather further information '' : Patient presented to the hospital on 08/24/2022, Brought in under petition by police for suicidal ideation was a threat to hang himself. Upon presentation in the emergency department, the patient was noted to be very irritable and wanting to isolate himself. He reported that "nothing even matters." The patient has been dealing with an ongoing substance use disorder and feels that he is stuck in the [facility] with no housing and no appropriate resources. He does express hopelessness, low appetite, dysphoria, and poor sleep. He has been living in a campsite in [place]. 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 Currently, the patient is denying any suicidal ideation however reports that he feels like there is no point to anything as he is likely to this winter since he has no housing. He is not reporting any homicidal ideation aside from wanting to hurt his ex- friend who is been living with his mother. He is not reporting any auditory or visual hallucinations. He denies any paranoia or other delusions. The patient is not reporting any significant symptoms of bipolar disorder. He denies any previous excessive energy, grandiosity, or increased goal-directed activity. The patient does report that he is irritable and annoyed with the substance use court order. The patient is wishing to sign himself voluntarily at the psychiatric unit so that he may not have to deal with ongoing court orders.'' 'Patient has a history of mood disorder and alcohol abuse the patient has previously trialed Zyprexa, trazodone, and Zoloft. He was last hospitalized on a psychiatric unit in May 2022. Patient denies any psychiatric outpatient follow-up. Patient denies any history of suicide attempts in the past.' MENTAL STATUS EXAM: The patient was seen while he was laying on bed Patient continues to be wanting to sleep and only response occasionally General Appearance: Patient appears to be stated age is alert, directable, and not cooperative. Patient appears to have disheveled hygiene and grooming. Behavior: Patient was laying in bed without any agitated behavior. Eye contact is occasional Speech: Patient's speech is fluent and nonpressured. But sparse Mood/Affect: Patient reports their mood is depressed, affect is congruent and constricted. Suicidality/Homicidality: Mild homicidal threats towards his ex-best friend who lives with his mother. Passive thoughts of suicide. From previous assessment Patient did not discuss any suicidal or homicidal ideations at this time Perceptions: Patient denies any visual hallucinations and denies any auditory hallucinations Though content/process: There is no evidence of any delusional thought content and thought process is linear and goal-directed. Memory and concentration: AOX3, grossly intact for the purposes of this session. Can spell "WORLD" backwards Judgment and insight: Poor IMPRESSIONS: Subjective data: Depressive disorder, unspecified Alcohol use disorder Tobacco use disorder Homelessness PLAN: We'll add trazodone 100 mg at bedtime Discussed effects and side effects which she appears to have understood well -Patient is admitted under involuntary however converted to voluntary status to MHU for stabilization of psychiatric symptoms and safety. Patient signed adult voluntary form and medication consent and is placed in patient's chart. -Medications : Remeron 15 mg by mouth at bedtime for depression/insomnia/appetite Librium 25 mg by mouth 3 times a day for alcohol withdrawal -Ativan PRN for agitation/aggression -[facility] protocol with Ativan PRN for ETOH withdrawal -Patient was counselled on substance abuse and desired to cut back on use -Patient was informed of the risks, benefits and side effects of the medication and patient verbally consented to taking the medications. Patient signed med consent form and was placed in chart. -Internal Medicine consult to perform medical evaluation and physical. -NRT - nicotine patch -SW on board for discharge planning. Encourage patient to participate in groups to work on coping skills. Objective - Vital Signs Vital signs: Vital Signs Temp 97.5 F L 08/26/22 23:23 Pulse 66 08/27/22 08:40 Resp 20 08/27/22 08:40 BP 124/95 08/27/22 08:40 Pulse Ox 98 08/26/22 23:23 FiO2 - Labs CBC & Chem 7: 08/26/22 10:12 08/26/22 10:12 Labs: Abnormal Lab Results - Last 24 Hours (Table) 08/26/22 Range/Units 10:12 Glucose 147 H (74-99) mg/dL AST 127 H (17-59) U/L ALT 75 H (4-49) U/L
[2022-08-27] MEDS: PROPRANOLOL LA 80 MG CAP.SA.24H PO SCH (11:23)
[2022-08-27] MEDS ORDERED: traZODone HCL 100 MG TAB PO SCH (21:00)
[2022-08-27] MEDS: MIRTAZAPINE 15 MG TAB PO SCH (22:48)
[2022-08-28 07:02] VITALS: BP 102/66; PULSE 53; RESP 14; TEMP 97.8
[2022-08-28] MEDS: CYCLOBENZAPRINE 5 MG TAB PO SCH (10:13)
[2022-08-28] MEDS: PROPRANOLOL LA 80 MG CAP.SA.24H PO SCH (10:14)
[2022-08-28] MEDS: PANTOPRAZOLE 40 MG TABLET PO SCH (10:15)
[2022-08-28] MEDS: NICOTINE 21MG/24HR PATCH TRANSDERM SCH (10:16)
[2022-08-28] MEDS: amLODIPine 10 MG TAB PO SCH (10:16)
[2022-08-28] MEDS: SYMBICORT 160-4.5 MCG INHALER (MHU) INHALATION SCH (10:23)
[2022-08-28] MEDS: chlordiazePOXIDE 25 MG CAP PO SCH (10:24)
--- NOTE | 2022-08-28 12:03 | P.DS ---
Providers Date of admission: 08/24/22 13:10 Expected date of discharge: 08/28/22 Attending physician: Pavan Alcazar MD Consults: 08/24/22 13:14 Consult Physician Routine Consulting Provider: Raymundo Adler Consult Reason/Comments: H and P Do you want consulting provider notified?: Yes Primary care physician: Stated None - Discharge Diagnosis(es) (1) Depressive disorder Current Visit: Yes Status: Acute Priority: High (2) Homelessness Current Visit: Yes Status: Chronic Priority: Medium (3) Nicotine dependence Current Visit: Yes Status: Chronic Priority: Medium (4) Alcohol use disorder Current Visit: Yes Status: Chronic Priority: High Hospital Course: Admission HPI: Patient is a 46-year-old male with significant history of alcohol use disorder presented to the hospital on a petition certification for suicidal ideation with a plan to hang himself Patient presented to the hospital on 08/24/2022, Brought in under petition by police for suicidal ideation was a threat to hang himself. Upon presentation in the emergency department, the patient was noted to be very irritable and wanting to isolate himself. He reported that "nothing even matters." The patient has been dealing with an ongoing substance use disorder and feels that he is stuck in the [place] area with no housing and no appropriate resources. He does express hopelessness, low appetite, dysphoria, and poor sleep. He has been living in a campsite in [place]. 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 Currently, the patient is denying any suicidal ideation however reports that he feels like there is no point to anything as he is likely to this winter since he has no housing. He is not reporting any homicidal ideation aside from wanting to hurt his ex-friend who is been living with his mother. He is not reporting any auditory or visual hallucinations. He denies any paranoia or other delusions. The patient is not reporting any significant symptoms of bipolar disorder. He denies any previous excessive energy, grandiosity, or increased goal-directed activity. The patient does report that he is irritable and annoyed with the substance use court order. The patient is wishing to sign himself voluntarily at the psychiatric unit so that he may not have to deal with ongoing court orders. Patient has a history of mood disorder and alcohol abuse the patient has previously trialed Zyprexa, trazodone, and Zoloft. He was last hospitalized on a psychiatric unit in May 2022. Patient denies any psychiatric outpatient follow-up. Patient denies any history of suicide attempts in the past. Hospital course: Upon admission to the unit patient was initially noted to be irritable however vehemently denying any suicidal or homicidal ideation. The patient reported that he had passive thoughts of suicide and because of his "hopeless situation" regarding his current substance abuse court order and his desire to move down to [place]. He also reports that he has been unable to make a ppropriate money as he has been unable to obtain gainful employment. He is currently homeless and has been living in a campground in [place]. The patient was however agreeable to inpatient psychiatric admission and to start medications to help him address his anxiety. Over the course of the hospital physician, the patient was adherent with his medications and would occasionally attend individual and milieu therapies. The patient is with significant improvement in regards to his target symptoms of irritability, anxiety, and depression. The patient is future and goal oriented with strong desire to be off his substance use court order so that he may gain employment. On the day of discharge, the patient is not reporting any suicidal or homicidal ideation, intention, and/or plan. He is not reporting any auditory or visual hallucinations. He denies any paranoia or other delusions. The patient has been adherent with his medication is not reporting any symptoms and side effects. The patient does have a significant history of substance abuse however his roommate denying any need for inpatient substance abuse rehabilitation. He reports that the only substance uses now is alcohol and he limits that to at least 6 drinks per day. He was counseled at length on the points of medication adherence and appropriate outpatient follow-up and to limit his alcohol use. Prior to discharge, family meeting will be arranged by licensed social worker to answer questions and ensure safety. Mental status exam: General Appearance: Patient appears to be stated age is alert, pleasant, and cooperative. Patient is in no acute distress and has fair hygiene and grooming Behavior: Patient is calmly seated without any agitated behavior. Speech: Patient's speech is fluent and nonpressured. Mood/Affect: Patient reports their mood is "much better", affect is congruent and euthymic. Suicidality/Homicidality: Patient denies having any suicidal or homicidal ideation intent or plan. Perceptions: Patient denies any auditory or visual hallucinations. Though content/process: There is no evidence of any delusional thought content and thought process is linear and goal-directed. Patient is future oriented Memory and concentration: AOX3, grossly intact for the purposes of this session. Can spell "WORLD" backwards correctly. Judgment and insight: Improved with guarded prognosis Impression: Depressive disorder, unspecified Alcohol use disorder Tobacco use disorder Homelessness Plan: -Continue with discharge today as patient has improved and stabilized psychiatrically and is not currently an imminent threat to himself and/or others. Patient will remain at chronically elevated risk for harm to self and/or others due to his impulsivity and polysubstance abuse. -Continue medications: Remeron 15 mg by mouth at bedtime depression and insomnia Trazodone 100 mg by mouth at bedtime for depression and insomnia -Patient was counseled on the need for medication compliance and appropriate follow-up at mental health and also primary care for medical issues. Patient verbalized understanding and agreed. -Social work to arrange for and conduct family meeting to ensure safety upon discharge and answer any questions/concerns. Social work also to arrange for patients follow up appointments with [facility] for psychiatric care along with follow up with primary care provider. -Patient counseled on abstaining from recreational drugs and marijuana and alcohol. Was informed/educated on the adverse effects on their physical and mental health. Patient verbally agreed and understood. Patient was offered substance abuse treatment however declined at this time. -Patient was instructed to return to the hospital or seek immediate medical care if their psychiatric or medical symptoms do worsen or reoccur. -Psychoeducation and supportive therapy provided to patient. Risks and benefits of pharmacological treatment versus the risks and benefits of nontreatment weight and discussed. Informed consent discussion held. Common side effects of psychotropics discussed such as, but not limited to headache, GI disturbance, sexual dysfunction, movement disorders, sedation, and orthostatic hypotension. Life threatening and blackbox warnings of prescribed medications also discussed. Potential risks of operating a vehicle or heavy machinery discussed with patient at length. Advised on importance of compliance and a reliable and responsible manner. Patient advised to review FDA consumer labeling of all medications prior to taking. Patient verbalized understanding of potential risks, and agrees with current treatment plan. Patient advised to medically contact physician/emergency personnel if any acute changes in condition occur. Vital Signs Temp 97.8 F 08/28/22 06:35 Pulse 53 L 08/28/22 06:35 Resp 14 08/28/22 06:35 BP 102/66 08/28/22 06:35 Pulse Ox 98 08/26/22 23:23 FiO2 Intake & Output 08/27/22 08/28/22 08/28/22 18:59 06:59 18:59 Weight 103.9 kg Laboratory Results WBC 5.5 k/uL (3.8-10.6) 08/26/22 10:12 RBC 5.14 m/uL (4.30-5.90) 08/26/22 10:12 Hgb 18.4 gm/dL (13.0-17.5) H 08/26/22 10:12 Hct 53.2 % (39.0-53.0) H 08/26/22 10:12 MCV 103.6 fL (80.0-100.0) H 08/26/22 10:12 MCH 35.8 pg (25.0-35.0) H 08/26/22 10:12 MCHC 34.5 g/dL (31.0-37.0) 08/26/22 10:12 RDW 12.4 % (11.5-15.5) 08/26/22 10:12 Plt Count 162 k/uL (150-450) 08/26/22 10:12 MPV 9.4 08/26/22 10:12 Neutrophils % 69 % 08/26/22 10:12 Lymphocytes % 21 % 08/26/22 10:12 Monocytes % 5 % 08/26/22 10:12 Eosinophils % 3 % 08/26/22 10:12 Basophils % 1 % 08/26/22 10:12 Neutrophils # 3.8 k/uL (1.3-7.7) 08/26/22 10:12 Lymphocytes # 1.1 k/uL (1.0-4.8) 08/26/22 10:12 Monocytes # 0.3 k/uL (0-1.0) 08/26/22 10:12 Eosinophils # 0.2 k/uL (0-0.7) 08/26/22 10:12 Basophils # 0.1 k/uL (0-0.2) 08/26/22 10:12 Macrocytosis Slight 08/26/22 10:12 Sodium 140 mmol/L (137-145) 08/26/22 10:12 Potassium 4.1 mmol/L (3.5-5.1) 08/26/22 10:12 Chloride 103 mmol/L (98-107) 08/26/22 10:12 Carbon Dioxide 26 mmol/L (22-30) 08/26/22 10:12 Anion Gap 11 mmol/L 08/26/22 10:12 BUN 13 mg/dL (9-20) 08/26/22 10:12 Creatinine 0.68 mg/dL (0.66-1.25) 08/26/22 10:12 Est GFR (CKD-EPI)AfAm >90 (>60 ml/min/1.73 sqM) 08/26/22 10:12 Est GFR (CKD-EPI)NonAf >90 (>60 ml/min/1.73 sqM) 08/26/22 10:12 Glucose 147 mg/dL (74-99) H 08/26/22 10:[address] Glu mg/dL 113 08/26/22 10:12 Hemoglobin A1c 5.6 % (0.0-6.0) 08/26/22 10:12 Calcium 9.5 mg/dL (8.4-10.2) 08/26/22 10:12 Total Bilirubin 0.7 mg/dL (0.2-1.3) 08/26/22 10:12 AST 127 U/L (17-59) H 08/26/22 10:12 ALT 75 U/L (4-49) H 08/26/22 10:12 Alkaline Phosphatase 101 U/L (38-126) 08/26/22 10:12 Total Protein 7.1 g/dL (6.3-8.2) 08/26/22 10:12 Albumin 4.4 g/dL (3.5-5.0) 08/26/22 10:12 Triglycerides 86.10 mg/dL (0.00-149.00) 08/26/22 10:12 Cholesterol 153.00 mg/dL (0.00-200.00) 08/26/22 10:12 LDL Cholesterol, Calc 87.6 mg/dL (0.0-131.0) 08/26/22 10:12 VLDL Cholesterol, Calc 17.22 mg/dL (5.00-40.00) 08/26/22 10:12 HDL Cholesterol 48.20 mg/dL (40.00-60.00) 08/26/22 10:12 Cholesterol/HDL Ratio 3.17 Ratio 08/26/22 10:12 TSH 0.891 mIU/L (0.465-4.680) 08/26/22 10:12 Coronavirus (PCR) Not Detected (Not Detectd) 08/24/22 11:43 Allergies Allergy/AdvReac Type Severity Reaction Status Date / Time Mushroom AdvReac Nausea & Verified 08/24/22 09:34 Vomiting & Diarrhea & Dizziness Patient Condition at Discharge: Stable Plan - Discharge Summary Discharge Rx Participant: Yes New Discharge Prescriptions: New traZODone HCL [Desyrel] 100 mg PO HS 30 Days tab Nicotine 21Mg/24Hr Patch [Habitrol] 1 patch TRANSDERM DAILY 15 Days patch Mirtazapine [Remeron] 15 mg PO HS@2200 30 Days tab Continue amLODIPine [Norvasc] 10 mg PO DAILY Propranolol HCl [Propranolol HCl ER] 80 mg PO DAILY Cyclobenzaprine [Flexeril] 10 mg PO TID PRN tab PRN Reason: Muscle Spasm Albuterol Inhaler [Ventolin Hfa Inhaler] 2 puff INHALATION RT-QID #1 each Budesonide-Formot 160-4.5 Mcg [Symbicort 160-4.5 Mcg Inhaler] 2 puff INHALATION RT-BID Discontinued traZODone HCL [Desyrel] 100 mg PO HS PRN #14 tab PRN Reason: Insomnia Sertraline [Zoloft] 50 mg PO DAILY 30 Days tab LORazepam [Ativan] 0.5 mg PO BID PRN PRN Reason: Alcohol Withdrawal Pantoprazole [Protonix] 40 mg PO DAILY Discharge Medication List amLODIPine [Norvasc] 10 mg PO DAILY 08/08/21 [History] Propranolol HCl [Propranolol HCl ER] 80 mg PO DAILY 06/11/22 [History] Albuterol Inhaler [Ventolin Hfa Inhaler] 2 puff INHALATION RT-QID #1 each 06/14/22 [Rx] Cyclobenzaprine [Flexeril] 10 mg PO TID PRN tab 06/14/22 [Rx] Budesonide-Formot 160-4.5 Mcg [Symbicort 160-4.5 Mcg Inhaler] 2 puff INHALATION RT-BID 08/24/22 [History] Mirtazapine [Remeron] 15 mg PO HS@2200 30 Days tab 08/28/22 [Rx] Nicotine 21Mg/24Hr Patch [Habitrol] 1 patch TRANSDERM DAILY 15 Days patch 08/28/22 [Rx] traZODone HCL [Desyrel] 100 mg PO HS 30 Days tab 08/28/22 [Rx] Follow up Appointment(s)/Referral[facility]): [facility] - [facility] 11:00 am (08/31 @ 11:00 [place]) Noam Perez MD [REFERRING] - 1-2 days Patient Instructions/Handouts: How to Stop Smoking (DC), Depression (DC), Alcohol Intoxication (DC) Activity/Diet/Wound Care/Special Instructions: Avoid the use of street drugs and alcohol. Take all prescriptions as prescribed. When you are in need of refills on your medications, please contact your medical provider and/or outpatient psychiatrist to have this done. Please go to scheduled outpatient appointment for aftercare treatment. If symptoms return or become worse, call the crisis line at and/or go to the nearest emergency room for evaluation. Discharge Disposition: HOME SELF-CARE
== END 2022-08-28 13:59 | disposition home or self-care (01) | DRG 881 ==
LOC: EC 01:59 → 3MHU 13:10
PROVIDERS: ADMIT Psychiatry & Neurology Psychiatry; ATTEND Psychiatry & Neurology Psychiatry
DX: F32.A Depression, unspecified (principal); R45.851 Suicidal ideations; F17.200 Nicotine dependence, unspecified, uncomplicated; F41.9 Anxiety disorder, unspecified; G47.00 Insomnia, unspecified; I10 Essential (primary) hypertension; Z56.0 Unemployment, unspecified; Z59.00 Homelessness unspecified; Z79.51 Long term (current) use of inhaled steroids; Z79.899 Other long term (current) drug therapy; Z20.822 Contact with and (suspected) exposure to COVID-19
CPT/HCPCS: 80053; 80061; 82075; 83036; 84443; 85025; 87635; 99285

== ENCOUNTER → 2023-10-16 | Outpatient (CLI) | payer OTHER ==
--- NOTE | 2023-10-16 14:48 | XR ---
EXAMINATION TYPE: XR lumbosacral spine min 4V DATE OF EXAM: 10/16/2023 CLINICAL HISTORY: pain COMPARISON: NONE TECHNIQUE: Frontal, lateral, and oblique images of the lumbar spine are obtained. FINDINGS: There are 5 lumbar type vertebral bodies identified. The lumbar spine shows satisfactory alignment without evidence of acute fracture or dislocation. Vertebral body heights are within normal limits. Disc spaces are well preserved. The overlying soft tissue appears unremarkable. IMPRESSION: No acute fracture or dislocation is seen in the lumbar spine.ICD 10 NO FRACTURE, INITIAL EVALUATION
== END | disposition home or self-care (01) ==
LOC: RADXRMAIN 13:27
PROVIDERS: ATTEND Family Medicine
DX: M54.50 Low back pain, unspecified (principal)
CPT/HCPCS: 72110